=== PATIENT | male | born 1955 | race Caucasian/White ===

== ENCOUNTER 2019-11-10 02:53 | Emergency (ER) | payer OTHER ==
[~2019-11-10] VITALS: Ht 182.9 cm; Wt 86.2 kg
[2019-11-10 03:27] LABS: BASOPHILS ABSOLUTE AUTO 0.08 K/mm3 (0.00-0.23); BASOPHILS PERCENT AUTO 1 % (0-2); EOSINOPHILS ABSOLUTE AUTO 0.25 K/mm3 (0.00-0.68); EOSINOPHILS PERCENT AUTO 2 % (0-6); Hematocrit 48.6 % (37.0-53.0); Hemoglobin 16.9 g/dL (13.5-17.5); IMMATURE GRAN ABSOLUTE AUTO 0.04 K/mm3 (0.00-0.10); IMMATURE GRAN PERCENT AUTO 0 % (0-1); LYMPHOCYTES ABSOLUTE AUTO 2.36 K/mm3 (0.84-5.20); LYMPHOCYTES PERCENT AUTO 22 % (21-46); MONOCYTES ABSOLUTE AUTO 1.15 K/mm3 (0.16-1.47); MONOCYTES PERCENT AUTO 11 % (4-13); Mean Corpuscular HGB 29.8 pg (26.0-34.0); Mean Corpuscular HGB Conc 34.8 g/dL (31.5-36.5); Mean Corpuscular Volume 86 fL (80-100); Mean Platelet Volume 9.9 fL (9.1-12.4); NEUTROPHILS ABSOLUTE AUTO 6.72 K/mm3 (1.96-9.15); NEUTROPHILS PERCENT AUTO 63 % (41-73); Platelet Count 306 K/mm3 (150-400); RDW Coefficient Variation 12.2 % (11.7-14.2); RDW Standard Deviation 38.3 fL (35.1-46.3); Red Blood Cell Count 5.68 M/mm3 (4.30-5.90)
[2019-11-10 03:44] LABS: Alanine Aminotransfer (ALT/SGP 23 U/L (12-78); Albumin, Blood 3.8 g/dL (3.4-5.0); Albumin/Globulin Ratio 0.9 (0.8-1.8); Alk Phos 101 U/L (50-136); Anion Gap 8 mmol/L (6-16); Aspartate Aminotrans (AST/SGOT 18 U/L (12-37); Bilirubin, Total 1.1 mg/dL (0.1-1.0); Blood Urea Nitrogen 22 mg/dL (8-24); Bun/Creatinine Ratio 20.8 (12.0-20.0); CO2, Blood 25 mmol/L (21-32); Chloride, Blood 105 mmol/L (98-108); Creatinine, Blood 1.06 mg/dL (0.60-1.20); Globulin, Blood 4.1 g/dL (2.2-4.0); Glomerular Filtration Rate >60 (60-); Glucose, Blood 95 mg/dL (70-99); Potassium, Blood 3.8 mmol/L (3.5-5.5); Sodium, Blood 138 mmol/L (136-145); Total Protein, Blood 7.9 g/dL (6.4-8.2)
== END 2019-11-10 05:01 | disposition home or self-care (01) ==
LOC: ER 02:53
PROVIDERS: Emergency Medicine
DX: K40.90 Unilateral inguinal hernia, without obstruction or gangrene, not specified as recurrent (principal); K29.70 Gastritis, unspecified, without bleeding; F17.200 Nicotine dependence, unspecified, uncomplicated
CPT/HCPCS: 36415; 74177; 80053; 85025; 99284-25; Q9967

== ENCOUNTER 2020-06-19 13:19 | Emergency (ER) | payer OTHER ==
[~2020-06-19] VITALS: Ht 182.9 cm; Wt 81.7 kg
[~2020-06-19 13:19] MED LIST: ACET325 PO; Amlodipine Bes2.5 MG PO; BISA10S PR; LACT10SY PO; METO25ER PO; SENNA-PLUS TAB1 EACH PO; XARELTO20 MG PO
[2020-06-19] MEDS ORDERED: ZOLOFT25 MG PO (13:43)
[2020-06-19] MEDS ORDERED: XARELTO20 M1 PO (13:44)
[2020-06-19] MEDS ORDERED: QUET25 PO (15:44)
== END 2020-06-19 17:20 | disposition home or self-care (01) ==
LOC: ER 13:19
DX: F03.91 Unspecified dementia, unspecified severity, with behavioral disturbance (principal); R45.1 Restlessness and agitation; Z79.01 Long term (current) use of anticoagulants; Z79.899 Other long term (current) drug therapy; Z86.73 Personal history of transient ischemic attack (TIA), and cerebral infarction without residual deficits
CPT/HCPCS: 99284

== ENCOUNTER 2020-06-19 18:10 | Emergency (ER) | payer OTHER ==
[~2020-06-19] VITALS: Ht 182.9 cm; Wt 86.2 kg
[~2020-06-19 18:10] MED LIST changes: +QUET25 PO; +XARELTO20 M1 PO; +ZOLOFT25 MG PO
== END 2020-06-19 22:00 | disposition home or self-care (01) ==
LOC: ER 18:10
DX: F03.90 Unspecified dementia, unspecified severity, without behavioral disturbance, psychotic disturbance, mood disturbance, and anxiety (principal); Z79.899 Other long term (current) drug therapy; Z79.01 Long term (current) use of anticoagulants; Z86.73 Personal history of transient ischemic attack (TIA), and cerebral infarction without residual deficits
CPT/HCPCS: 99284

== ENCOUNTER 2020-06-26 13:10 | Observation (INO) | payer OTHER, MEDICARE ==
[~2020-06-26] VITALS: Ht 177.8 cm; Wt 84.8 kg
[2020-06-26] MEDS ORDERED: SENNA LAXATIVE8.6 MG PO (16:52)
[2020-06-26] MEDS ORDERED: ZOLOFT25 MG PO (16:53)
[2020-06-26] MEDS ORDERED: SEROQUEL25 MG PO (16:54)
[2020-06-26] MEDS ORDERED: XARELTO20 MG PO (16:54)
[2020-06-26] MEDS ORDERED: DIVA250EC PO (16:55)
[2020-06-26] MEDS ORDERED: LORA.5 PO (16:56)
[2020-06-26 18:04] LABS: BASOPHILS ABSOLUTE AUTO 0.07 K/mm3 (0.00-0.23); BASOPHILS PERCENT AUTO 1 % (0-2); EOSINOPHILS ABSOLUTE AUTO 0.56 K/mm3 (0.00-0.68); EOSINOPHILS PERCENT AUTO 8 % (0-6); Hemoglobin 12.7 g/dL (13.5-17.5); IMMATURE GRAN ABSOLUTE AUTO 0.01 K/mm3 (0.00-0.10); IMMATURE GRAN PERCENT AUTO 0 % (0-1); LYMPHOCYTES ABSOLUTE AUTO 2.59 K/mm3 (0.84-5.20); LYMPHOCYTES PERCENT AUTO 38 % (21-46); MONOCYTES ABSOLUTE AUTO 0.61 K/mm3 (0.16-1.47); MONOCYTES PERCENT AUTO 9 % (4-13); Mean Corpuscular HGB 29.5 pg (26.0-34.0); Mean Corpuscular HGB Conc 32.6 g/dL (31.5-36.5); Mean Corpuscular Volume 91 fL (80-100); Mean Platelet Volume 10.3 fL (9.1-12.4); NEUTROPHILS ABSOLUTE AUTO 2.99 K/mm3 (1.96-9.15); NEUTROPHILS PERCENT AUTO 44 % (41-73); Platelet Count 255 K/mm3 (150-400); RDW Coefficient Variation 12.7 % (11.7-14.2); RDW Standard Deviation 42.5 fL (35.1-46.3); White Blood Cell Count 6.83 K/mm3 (4.00-11.30)
[2020-06-26 18:38] LABS: Acetaminophen, Random <2.0 ug/mL (10.0-30.0); Alanine Aminotransfer (ALT/SGP 36 U/L (12-78); Albumin/Globulin Ratio 0.9 (0.8-1.8); Alk Phos 84 U/L (50-136); Anion Gap 8 mmol/L (6-16); Aspartate Aminotrans (AST/SGOT 16 U/L (12-37); Bilirubin, Total 0.3 mg/dL (0.1-1.0); Blood Urea Nitrogen 26 mg/dL (8-24); Bun/Creatinine Ratio 27.1 (12.0-20.0); CO2, Blood 26 mmol/L (21-32); Calcium, Blood 8.6 mg/dL (8.5-10.1); Chloride, Blood 114 mmol/L (98-108); Creatinine, Blood 0.96 mg/dL (0.60-1.20); Ethanol (Alcohol), Blood, Med <3 mg/dL; Globulin, Blood 3.3 g/dL (2.2-4.0); Glomerular Filtration Rate >60 (60-); Glucose, Blood 97 mg/dL (70-99); Salicylate <1.7 mg/dL (2.8-20.0); Sodium, Blood 148 mmol/L (136-145); Total Protein, Blood 6.3 g/dL (6.4-8.2)
[2020-06-26] MEDS ORDERED: SEROQUEL50 MG PO (19:22)
[2020-06-26 21:09] LABS: Source, Urine Voided
[2020-06-26 21:11] LABS: Bilirubin, Urine Neg (Neg); Blood, Urine Neg (Neg); Glucose Qualitative, Urine Neg (Neg); Ketones, Urine 1+ (Neg); Leukocyte Esterase, Urine Neg (Neg); Nitrite, Urine Neg (Neg); Protein, Urine Neg (Neg); Specific Gravity, Urine 1.015 (1.003-1.022); Urobilinogen, Urine NORM (Normal); pH, Urine 6.5 (5.0-8.0)
[2020-06-26 21:12] LABS: Appearance, Urine Clear (Clear); Color, Urine Yellow (P-Yellow)
[2020-06-26 21:23] LABS: U Amphetamine Screen Not Detected; U Barbituate Screen Not Detected; U Benzodiazapine Screen DETECTED; U Buprenorphine Screen Not Detected; U Cannabinoids Screen Not Detected; U Cocaine Screen Not Detected; U Methadone Screen Not Detected; U Methamphetamine Screen Not Detected; U Opiates Screen Not Detected; U Oxycodone Screen Not Detected; U Phencyclidine Screen Not Detected; U Propoxyphene Screen Not Detected
--- NOTE | 2020-06-27 03:01 | NUR ---
Patient arrived on floor very somnolent and oriented to self only. Very cooperative with brief change. (patient was incontinent of stool and urine) Skin is intact with exception of small triangular red radu in right groin fold. Barrier cream applied. Very difficult admission as patient was an extremely poor historian. MAR from [facility] used as reference for completing Med list. It appears that the scheduled doses of seroquel were recently increased at [facility] to 50mg AM and 50mg PM.
[2020-06-27 06:09] LABS: BASOPHILS ABSOLUTE AUTO 0.08 K/mm3 (0.00-0.23); BASOPHILS PERCENT AUTO 1 % (0-2); EOSINOPHILS ABSOLUTE AUTO 0.57 K/mm3 (0.00-0.68); EOSINOPHILS PERCENT AUTO 8 % (0-6); Hematocrit 38.3 % (37.0-53.0); Hemoglobin 12.9 g/dL (13.5-17.5); IMMATURE GRAN ABSOLUTE AUTO 0.02 K/mm3 (0.00-0.10); IMMATURE GRAN PERCENT AUTO 0 % (0-1); LYMPHOCYTES ABSOLUTE AUTO 2.61 K/mm3 (0.84-5.20); LYMPHOCYTES PERCENT AUTO 37 % (21-46); MONOCYTES ABSOLUTE AUTO 0.66 K/mm3 (0.16-1.47); MONOCYTES PERCENT AUTO 9 % (4-13); Mean Corpuscular HGB 29.9 pg (26.0-34.0); Mean Corpuscular HGB Conc 33.7 g/dL (31.5-36.5); Mean Corpuscular Volume 89 fL (80-100); Mean Platelet Volume 10.6 fL (9.1-12.4); NEUTROPHILS ABSOLUTE AUTO 3.22 K/mm3 (1.96-9.15); NEUTROPHILS PERCENT AUTO 45 % (41-73); Platelet Count 228 K/mm3 (150-400); RDW Coefficient Variation 12.5 % (11.7-14.2); RDW Standard Deviation 41.1 fL (35.1-46.3); Red Blood Cell Count 4.32 M/mm3 (4.30-5.90); White Blood Cell Count 7.16 K/mm3 (4.00-11.30)
[2020-06-27 06:23] LABS: Alanine Aminotransfer (ALT/SGP 32 U/L (12-78); Albumin/Globulin Ratio 0.9 (0.8-1.8); Alk Phos 82 U/L (50-136); Anion Gap 5 mmol/L (6-16); Aspartate Aminotrans (AST/SGOT 12 U/L (12-37); Bilirubin, Total 0.3 mg/dL (0.1-1.0); Blood Urea Nitrogen 22 mg/dL (8-24); Bun/Creatinine Ratio 25.6 (12.0-20.0); CO2, Blood 27 mmol/L (21-32); Calcium, Blood 8.4 mg/dL (8.5-10.1); Chloride, Blood 112 mmol/L (98-108); Creatinine, Blood 0.86 mg/dL (0.60-1.20); Globulin, Blood 3.4 g/dL (2.2-4.0); Glomerular Filtration Rate >60 (60-); Glucose, Blood 80 mg/dL (70-99); Potassium, Blood 3.6 mmol/L (3.5-5.5); Sodium, Blood 144 mmol/L (136-145); Total Protein, Blood 6.4 g/dL (6.4-8.2)
--- NOTE | 2020-06-27 09:13 | NUR ---
Verbally agressive SERVICE ADVISOR attempted to get vitals this morning and patient was verbally agressive towards SERVICE ADVISOR. Patient was yelling out "Fucken shit!" and was disturbing was disruptive to staff/patients. Patient is moved to room 350 for closer observation. Report handed to Sudha Jones RN.
--- NOTE | 2020-06-27 18:27 | NUR ---
SHIFT SUMMARY PT IS AO TO SELF. PT PLEASANT AND COOPERATIVE, BUT SLEEPY THIS SHIFT. PT PULLED IV OUT AND ORDER PLACED FOR NO IV ACCESS NEEDED PER PHYSICIAN. ENCOURAGED FLUIDS AND PT DID WELL WITH ORAL INTAKE UPON CUEING. PT DENIES PAIN, N/V, SOB. PT IS A 2 PERSON MAX ASSIST WITH TRANSFERS. PT HAS A SOCIAL SERVICE CONSULT FOR DC PLACEMENT SINCE [facility]FR[facility]O WILL NOT BE TAKING PT BACK DUE TO BEHAVIOR. PT BLADDER SCANNED THIS AGUEDA PER ORDERS. PT IS IN BED, LOW POSITION, CALL LIGHT IN REACH.
--- NOTE | 2020-06-28 04:05 | NUR ---
SHIFT SUMMARY: BP ELEVATED AT START OF SHIFT, WNL THIS AM. PULSE 46-51. DENIES PAIN. A/OX1. MOOD IS LABILE. PT MOSTLY PLEASANT AND COOPERATIVE WHEN APPROACHED SLOWLY AND ACTIONS ARE EXPLAINED TO PT PRIOR TO DOING THEM. PT BECOMES AGITATED AND WILL SWEAR AT STAFF AND MOTION THAT HE IS GOING TO HIT THEM- WITHOUT FOLLOWING THROUGH- WHENEVER HE DOES NOT WANT TO DO AN ACTIVITY SUCH ATTENDS AND BED CHANGE AFTER EPISODE OF INCONTINENCE. BLADDER SCANNED PER ORDERS, 240CC. PO FLUIDS ENCOURAGED, PT ONLY ACCEPTED A COUPLE SMALL SIPS WITH MEDS. MINIMAL MOVEMENT OF L ARM OBSERVED, CONSISTENT W/PT BASELINE S/P RECENT CVA. SLEEVE SETTER SAFETY STITCH/PUSHE/PULLS EQUAL BILATERALLY HOWEVER. BED LOW, BED ALARM ON, NO ATTEMPTS TO SELF T/F. WILL CONT TO MONITOR.
[2020-06-28 06:21] LABS: Anion Gap 6 mmol/L (6-16); Blood Urea Nitrogen 19 mg/dL (8-24); Bun/Creatinine Ratio 18.1 (12.0-20.0); CO2, Blood 28 mmol/L (21-32); Calcium, Blood 8.7 mg/dL (8.5-10.1); Chloride, Blood 109 mmol/L (98-108); Creatinine, Blood 1.05 mg/dL (0.60-1.20); Glomerular Filtration Rate >60 (60-); Glucose, Blood 75 mg/dL (70-99); Sodium, Blood 143 mmol/L (136-145)
--- NOTE | 2020-06-28 18:00 | NUR ---
SHIFT SUMMARY PT IS AOX2. PT PLEASANT AND COOPERATIVE THIS SHIFT. PT DENIES PAIN, SOB, N/V. PT ABLE TO AMBULATE TO BATHROOM WITH 2 ASSIST TODAY. PT MORE AWAKE TODAY COMPARED TO YESTERDAY. FINGER FOODS ORDERED FOR TOMORROW DUE TO PT'S PARTIAL BLINDNESS. PT STATES VISION IS BLURRY AND HE CAN SEE SHAPES. PT AWAITING FOOD AND BEVERAGE MANAGER REFERRAL FOR PLACEMENT. PT IS IN BED, CALL LIGHT IN REACH, BED IN LOW POSITION.
--- NOTE | 2020-06-29 05:27 | NUR ---
SHIFT SUMMARY: AAOX1. FEW SHORT EPISODES OF AGITATION W/ SWEARING, ESPECIALLY SURROUNDING ATTENDS CHANGES AND BED CHANGES. SEVERAL ATTEMPTS TO SELF T/F. REDIRECTS MORE QUICKLY TONIGHT. MOSTLY PLEASANT AND COOPERATIVE. DENIES PAIN. NO ACUTE CONCERNS AT THIS TIME.
[2020-06-29 05:47] LABS: Anion Gap 6 mmol/L (6-16); Blood Urea Nitrogen 25 mg/dL (8-24); Bun/Creatinine Ratio 26.5 (12.0-20.0); CO2, Blood 27 mmol/L (21-32); Calcium, Blood 8.8 mg/dL (8.5-10.1); Chloride, Blood 109 mmol/L (98-108); Creatinine, Blood 0.94 mg/dL (0.60-1.20); Glomerular Filtration Rate >60 (60-); Glucose, Blood 86 mg/dL (70-99); Potassium, Blood 3.7 mmol/L (3.5-5.5); Sodium, Blood 142 mmol/L (136-145)
--- NOTE | 2020-06-29 14:51 | NUR ---
AGITATION PT WOKE FROM [place] AND IS VERY AGITATED WITH VISUAL AND AUDITORY HALLUCINATIONS. PT ATTEMPTING TO "FIGHT" A PERSON HE SEES IN THE CORNER. MEDICATED WITH 12.5MG PO SEROQUEL PER EMAR. ASSISTED BACK TO BED, WILL MONITOR
--- NOTE | 2020-06-29 16:00 | NUR ---
PT SLEEPING DEEPLY AT THIS TIME, WILL CONTINUE TO MONITOR
--- NOTE | 2020-06-29 18:20 | NUR ---
PT RESTING/SLEEPING AFTER EPISODE OF AGITATION AND HALLUCINATIONS AND RECEIVING 12.5MG PO SEROQUEL. HE DID WAKE AND TAKE HIS 1800 DOSE OF XARALTO. WILL CONTINUE TO MONITOR AND REPORT TO ONCOMING RN
--- NOTE | 2020-06-30 04:02 | NUR ---
SHIFT SUMMARY ALERT, ABLE TO MAKE NEEDS KNOWN. COOPERATIVE WITH CARE; NO EPISODES OF AGITATION THIS SHIFT. NO C/O PAIN/DISCOMFORT. BP ELEVATED AT BEGINNING OF SHIFT; RE-ASSESSED DOWN WNL. APPEARED TO REST MUCH OF SHIFT. VSS/AFEBRILE. NO ACUTE CHANGES NOTED. BED IN LOWEST POSITION; ALARM ON. CALL LIGHT AND BELONGINGS WITHIN REACH. WCTM. REPORT TO ONCOMING RN.
--- NOTE | 2020-06-30 18:14 | NUR ---
NO ACUTE CHANGES NOTED THIS SHIFT, WILL CONTINUE TO MONITOR AND REPORT TO ONCOMING RN
--- NOTE | 2020-06-30 19:15 | NUR ---
ASSUMED CARE RECEIVED REPORT FROM ANDRES JARA. ASSUMED CARE OF PT. RESTING COMFORTABLY AT THIS TIME, NO S/S ACUTE DISTRESS NOTED, RESPS EVEN AND UNLABORED. DENIES NEEDS AT THIS TIME. CALL LIGHT, POSSESSIONS IN REACH, WILL CONTINUE TO MONITOR.
--- NOTE | 2020-07-01 04:30 | NUR ---
SHIFT SUMMARY PT HAS HAD NO ACUTE CHANGES IN CONDITION T/O NIGHT. WAS MONITORED EVERY 1-2 HOURS WITH NEEDS MET. VSS, REVIEWED. ATTEMPTED TO EXIT BED MULTIPLE TIMES T/O NIGHT, RE-DIRECTABLE, AGGRESSIVE TOWARDS STAFF AT TIMES, AND RESISTANT TO CARES. ASLEEP AT THIS TIME. DENIES NEEDS. RESPS EVEN AND UNLABORED. CALL LIGHT, POSSESSIONS IN REACH, BED IN LOW POSITION WITH ALARMS ON, WCTM, REPORT OFF TO ONCOMING RN.
--- NOTE | 2020-07-01 18:18 | NUR ---
SHIFT SUMMARY RAQUEL DENIED PAIN THIS SHIFT. PLEASANT FOR THE MOST PART, NO VIOLENCE. INCONTINENT URINE, MEDS WITH APPLESAUCE. CONFUSED. AO1 TO CHAIR, BED BATH DONE. CALL LIGHT IN REACH, [facility]
--- NOTE | 2020-07-02 04:53 | NUR ---
SHIFT SUMMARY NO ACUTE CHANGES THIS SHIFT. PT SLEPT WELL T/O NIGHT. NO COMPLAINTS OF ANY KIND. PT IS LAYING IN BED WITH EYES CLOSED, EVEN AND UNLABORED RESPIRATIONS. BED IN LOWERED POSITION WITH BED ALARM ON. CALL LIGHT AND PERSONAL ITEMS WITHIN REACH. NO APPARENT NEEDS OR DISTRESS AT THIS TIME, WILL CONTINUE TO MONITOR UNTIL REPORT GIVEN TO DAY RN.
--- NOTE | 2020-07-02 19:24 | NUR ---
SHIFT SUMMARY RAQUEL WAS PLEASANT AND COOPERATIVE IN THE MORNING. UP TO CHAIR FOR MEALS. SET OFF CHAIR ALARM SEVERAL TIMES. GOT AGITATED AND UPSET WITH BED ALARM AND REDIRECTION, CLENCHED FIST WITH THREATS, BUT NO SWINGS. GAVE PRN SEROQUEL. GOT NICOTINE PATCH ORDERED, HE WAS ALSO VERY AGITATED AND WANTED TO GO SMOKE. HAD A COUPLE INCONTINENT BMS AND WAS INCONTINENT URINE. REPORT GIVEN TO NIGHT NURSE
--- NOTE | 2020-07-03 05:01 | NUR ---
SHIFT SUMMARY NO ACUTE CHANGES THIS SHIFT. PT SLEPT WELL T/O NIGHT WITH NO COMPLAINTS OF ANY KIND. ATTEMPTED TO GET OUT OF BED X1, WAS ABLE TO REDIRECT AND PT LAID BACK DOWN TO TRY TO GET MORE SLEEP. PT IS LAYING IN BED, EVEN AND UNLABORED RESPIRATIONS. BED IN LOWERED POSITION WITH BED ALARM IN PLACE. CALL LIGHT AND PERSONAL ITEMS WITHIN REACH. NO APPARENT NEEDS OR DISTRESS AT THIS TIME, WILL CONTINUE TO MONITOR UNTIL REPORT GIVEN TO DAY RN.
--- NOTE | 2020-07-03 18:01 | NUR ---
SHIFT SUMMARY PATIENT HAS BEEN VERY ORNERY TODAY. HE STATED THIS MORNING WHEN I CAME ONTO SHIFT HE WAS JUST GOING TO "SIT AROUND AND BE A SHIT". I WAS ABLE TO KEEP HIM REDIRECTED TODAY HE WANTED TO GO OUTSIDE AND HAVE A CIGARETTE. HE ALSO STATES THAT ITS TIME FOR HIM TO GO HOME AND HE NEEDS HIS WHEELCHAIR. PATIENT DENIES ANY CONCERNS AT THIS TIME. HE JUST WANTS TO GET BACK HOME AT THIS TIME.
--- NOTE | 2020-07-03 18:50 | NUR ---
VERIFIED VIDEO MONITORING CALLED SCU MONITOR TO VERIFY VIDEO MONITORING
--- NOTE | 2020-07-04 04:30 | NUR ---
SHIFT SUMMARY ADMITTED FOR AGITATION/DEMENTIA. DNR CODE. PLAN IS FOR PLACEMENT IN A [facility] F[facility]ILITY. CARE MANAGEMENT IS WORKING ON PLACEMENT. HE WAS PREVIOUSLY FROM [facility]. PT RUNS HYPERTENSIVE. HOME MEDICATION XARELTO IS SCHEDULED. IT WAS REPORTED TO ME THAT PT REFUSES MEDS AT TIMES. FOR THIS SHIFT HE ACCEPTED ALL MEDICATIONS OFFERED. HE RESTED COMFORTABLY THROUGHOUT SHIFT. NO NEW CONCERNS.
--- NOTE | 2020-07-04 15:47 | NUR ---
1510- PATIENT STARTED TO GET UP OUT OF HIS CHAIR AND HIS ALARM WAS GOING OFF. PATIENT WAS ALREADY UPSET AND STATED HE WANTED TO GO OUTSIDE AND HAVE A CIGARETTE. HE IS UNHAPPY ABOUT NOT BEING ABLE TO GO OUTSIDE. HE MANAGED TO WALK BEHIND THE CHAIR AND SWUNG AT THE AID THAT WAS TRYING TO HELP HIM ([facility]). SHE CALLED FOR HELP AND THE OTHER AID CALLED SECURITY FOR STANDBY/CODE TATUM. PATIENT WAS ALMOST FALLING. NURSE MADE IT INTO THE ROOM AND THE PATIENT WAS TRYING TO WALK OVER CORDS. ALL CORDS WERE UNPLUGGED AND PATIENT BEGAN TO WALK INTO THE HALLWAY. THE PATIENT AT THIS TIME HAD TRIED TO SWING HIS FISTS BEHIND HIM. HE MANAGED TO WALK INTO THE HALLWAY, ONE AID BEHIND HIM WITH A CHAIR IN CASE HE FELL, NURSE ON THE SIDE WHILE WAITING FOR SECURITY. PATIENT TURNED AND ALMOST FELL, SECURITY WAS ABLE TO HELP AVOID A FALL AND GET THE PATIENT BACK TO HIS ROOM AND INTO THE BED. PATIENT WAS PLACED IN A MELYSSA VEST AND WRIST RESTRAINTS HE WAS SWINGING AT STAFF AND KICKING HIS LEGS. WE ASSESS THE PATIENT AT THE TIME WITH MELYSSA AND WRISTS, PATIENT WAS USING HIS LEGS TO TAKE THE WRIST RESTRAINTS OFF AND STILL TRYING TO KICK STAFF. PATIENT WAS THEN PLACED IN WRIST AND ANKLE RESTRAINTS AT 1520. PATIENT CIRCULATION WAS CHECKED, AND DOCTOR PEARL WAS CALLED AT 1543. AWAITING A CALL BACK FROM DR. PEARL FOR RESTRAINTS ORDER. PATIENT IS CURRENTLY MUMBLING TO HIMSELF AFTER INSULTING STAFF AND STATING THAT EVERYONE IN THE ROOM WAS NEXT ON HIS LIST, HE WAS GOING TO KICK EVERYONES [BUTT] AND USING PROFANITIES ABOUT HOW HE WOULD FIND STAFF AT THEIR HOUSE AND TAKE THEM OUT. PATIENT IS IN FOUR POINTS AND MELYSSA FOR HIS OWN SAFETY AND SAFETY OF STAFF HE IS CURRENTLY TRYING TO CLIMB OUT OF BED, EVEN WITH RESTRAINTS IN PLACE. PATIENT WILL CONTINUE TO BE MONITORED CLOSELY. WILL CALL DR. PEARL AGAIN IN A FEW MINUTES.
--- NOTE | 2020-07-04 16:10 | NUR ---
ATTEMPTED TO CALL DR. PEARL AGAIN FOR THE RESTRAINTS ORDER. WILL CALL AGAIN IN 5 MINUTES.
--- NOTE | 2020-07-04 17:49 | NUR ---
PATIENT STILL NOT EATING. HE STATES THAT HE WILL EAT WHEN THE PERSON IN HIS ROOM WAKES UP. HE IS CURRENTLY STILL IN THE RESTRAINTS AND HAS HELP FOR
--- NOTE | 2020-07-04 18:33 | NUR ---
SHIFT SUMMARY PATIENT IS CURRENTLY IN A MELYSSA VEST. HE HAS BEEN AGITATED AND AGGRESSIVE TODAY. HE WAS FIXATED ON GOING OUTSIDE AND HE SWUNG AT STAFF. SEE PREVIOUS NOTE FOR FULL DETAILS. HE HAS DONE WELL IN THE MELYSSA VEST, BUT DID NOT REQUIRE THE ANKLES AT THIS TIME. ASSESSING THE PATIENT HAS BEEN DONE. HE IS STILL RELAXING IN THE BED AT THIS TIME. SPOKE WITH DR. PEARL AND HE GOT A PRN DOSE OF SEROQUEL. HE IS REFUSING HIS PILLS TODAY. HE STATES THAT HE DOESNT NEED THEM ANYMORE. TRIED TO GIVE HIM ONE OF HIS MORNING MEDS AND HE IS NOT EVEN WILLING. HE WILL KEEP HIS MOUTH CLOSED OR TRY TO SPIT. HE DID TAKE A PRN DOSE OF SEROQUEL AT 1600. HE HAS DONE WELL SINCE THEN. HE IS HAVING A LOT OF HALLUCINATIONS TONIGHT AND UNSURE WHY.
--- NOTE | 2020-07-04 19:15 | NUR ---
VERIFIED VIDEO MONITORING CALLED SCU MONITOR TO VERIFY CAMERAS ARE IN PLACE AND MONITORING
--- NOTE | 2020-07-05 04:09 | NUR ---
SHIFT SUMMARY ADMITTED FOR AGITATION/DEMENTIA. DNR CODE. PLAN IS FOR PLACEMENT IN [facility]. PT HAS A HX OF GETTING AGITATED/COMBATIVE. HE IS CONFUSED, HE DOES HALLUCINATE. HE DID SLEEP SOUNDLY THROUGHOUT SHIFT - FOLLOWING MED PASS. NO NEW CONCERNS THIS SHIFT
--- NOTE | 2020-07-06 01:52 | NUR ---
65 year old MAle with vascular dementia with behavioral disturbances taken out of bam vest on day shift & we continue with high fall risk precautions as well as approach with caution due to hx of agression. PT was not agressive but he was verbally abusive when staff interveaned to answer bed alarm. He was incontinent of bowel & bladder but also amb to bathroom with staff. PT saying he is sorry for recent stupid acitivy. Cooperative with meds. Declined alcohol at HS. Needs safe placement , dc planning working with PT.
--- NOTE | 2020-07-06 15:47 | NUR ---
PATIENT HAS BEEN ACTUALLY PLEASANT TOWARDS STAFF THIS SHIFT. TIRED AND SLEEPING MOST OF THE SHIFT BUT AWAKENS LONG ENOUGH TO TAKE HIS MEDICATION. HE TAKES HIS MEDS WHOLE IN APPLESAUCE WITHOUT COMPLICATION. VITALS ARE STABLE AND WNL. PATIENT CONTINUES TO SLEEP IN BED AT THIS TIME. WILL CONTINUE TO MONITOR AND PROVIDE CARE NEEEDED.
--- NOTE | 2020-07-07 06:11 | NUR ---
65 year old Male with hx of dementia, blindness, CVA continues on remote camera monitoring due to high fall risk. No calls from compliance monitor on high risk activity. Pt had declined dinner tray & he did eat 50% of dinner with me feeding him. No attempts to feed self or take fluids. Incontinent of bowel & bladder, placed urinal & PT did not void. PT not agressive cooperative with lashanda greco in [facility]. Says he is sorry for any problems he caused. fall precautions continue.
--- NOTE | 2020-07-07 17:12 | NUR ---
PATIENT HAS BEEN LETHARGIC ALL DAY AND SLEEPING. HE WILL AWAKEN TO VERBAL COMMAND BY STAFF. HE ALLOWS FOR ADL's AND PERSONAL CARE TO BE COMPLETED AND HAS TAKEN ALL HIS MEDICATION WITHOUT COMPLICATION. PATIENT CONTINUES TO RECIEVE A BEER WITH MEALS BUT DRINKS MINIMALLY OF IT. VITALS HAVE BEEN STABLE AND WITHIN NORMAL LIMITS. WILL CONTINUE TO MONITOR AND PROVIDE CARE NEEDED.
--- NOTE | 2020-07-08 07:03 | NUR ---
pt INCONTIENT OF BOWEL & BLADDER, DOES NOT COMMUNICATE THAT HE NEEDS TO URINATE OR DEFICATE. NO AGRESSION OR RESISTANCE. hE NEEDS SET UP CUES & SOME ASSIST TO EAT. ABLE TO USE STRAW. EDENTULOUS CHEWS FOOD THOUROUGHLY. NOT OUT OF BED , NEEDS ASSIST FOR BED MOBILITY. CAME FROM snf NEEDS dc PLANNING DUE TO RECENT AGRESSIVE BEHAVIORS THAT ARE NOT EVIDENT NOW
--- NOTE | 2020-07-08 16:55 | NUR ---
Patient has been more awake today than the past two days. after eating lunch the patient did become verbally agressive towards the staff including the use of foul language; patient was given PRN medication to assist with the behaviors per emar, med was effective. Patient denies pain and discomfort. Continues to recieve a beer with each meal; typically does not drink much of it however did finish the entire can with his lunch. Patient continues to rest in bed at this time. will continue to monitor and provide care as needed.
--- NOTE | 2020-07-09 06:20 | NUR ---
HUMAN RESOURCES DIRECTOR SUMMARY PT HAS TRIED TO GET OUT OF BED 2-3 TIMES TONIGHT AFTER SCHEDULED SEROQUEL GIVEN. THIS MORNING AT 0600 PT WAS DIFFICULT TO WAKE UP. PT WOKE UP TO STERNAL RUB AND COOL WASH CLOTH. AFTER THIS WAS DONE PT TRIED TO SWAT STAFF'S HANDS AWAY ACTIVELY. PT OPENED EYES A BRIEF SECOND AND CLOSED THEM AGAIN AND STILL ACVTIVELY PUSHING STAFF'S HANDS AWAY AND MOVING HIS HEAD. PT IS NORMALLY BRADYCARDIC. CAMERA MONITOR ON, CALL LIGHT WITHIN REACH, WILL CONTINUE TO MONITOR AND GIVE REPORT TO ONCOMING RN.
--- NOTE | 2020-07-09 18:35 | NUR ---
SHIFT SUMMARY PT AxOx2 TO SELF AND PLACE. PLEASANT AND COOPERATIVE WITH CARE. NO AGITATION NOTED. 2 PERSON ASSIST WITH FWW TO RECLINER. VITALS SHOWED BRADYCARDIA AND HTN. THIS IS CONSISTENT WITH PT'S HISTORY. NO IV ACCESS. GOOD APPETITE TODAY. LOW URINE OUTPUT. PLAN FOR PLACEMENT IS PENDING. PT CURRENTING RESTING IN RECLINER WITH CALL LIGHT IN REACH. VITALS REVIEWED. PT DENIES ANY NEEDS AT THIS TIME.
[2020-07-10 05:42] LABS: Albumin, Blood 2.9 g/dL (3.4-5.0); Anion Gap 4 mmol/L (6-16); Blood Urea Nitrogen 19 mg/dL (8-24); Bun/Creatinine Ratio 22.6 (12.0-20.0); CO2, Blood 28 mmol/L (21-32); Calcium, Blood 8.6 mg/dL (8.5-10.1); Chloride, Blood 110 mmol/L (98-108); Creatinine, Blood 0.84 mg/dL (0.60-1.20); Glomerular Filtration Rate >60 (60-); Glucose, Blood 92 mg/dL (70-99); Phosphorus, Blood 3.4 mg/dL (2.5-4.9); Potassium, Blood 4.3 mmol/L (3.5-5.5); Sodium, Blood 142 mmol/L (136-145)
--- NOTE | 2020-07-10 07:11 | NUR ---
FISH CUTTING MACHINE OPERATOR SUMMARY PT A/O X1. PT HAS TRIED TO GET UP OUT OF BED MULTIPLE TIMES OVERNIGHT. SCHEDULED SEROQUEL AT BEDTIME GIVEN BUT PT WAS STILL TRYING TO GET OUT OF BED, HARD TO RE-DIRECT AND VERBALLY ABUSIVE. PRN SEROQUEL GIVEN AT 0119 WHICH HELPED PT SLEEP. DENIES PAIN. NO SOB. REPORT GIVEN TO ONCOMING RN.
--- NOTE | 2020-07-10 18:37 | NUR ---
SHIFT SUMMARY PT AxOx1-2. VERBAL AGGITATION TOWARDS NURSES AND AIDE THIS AM WHEN HE DID NOT MAKE IT TO THE BATHROOM ON TIME. STAFF ABLE TO REDIRECT AND CALM PATIENT DOWN. HE HAS BEEN COOPERATIVE AND CALM THE REST OF THE SHIFT. PLAN STILL PENDING PLACMENT. GOOD APPETITE. FEEDS SELF WELL WITH FINGER FOODS. UP IN CHAIR FOR MEALS. BEER OFFERED WITH MEALS. TRANSFERS TO CHAIR 2PERSON ASSIST WITH FWW. CURRENTLY EATING DINNER. DENIES PAIN OR ANY NEEDS. VITALS REVIEWED. BP TRENDING HIGH. METOPROLOL WAS DC'D TODAY BEFORE AM MEDS GIVEN. CALL LIGHT IN REACH.
--- NOTE | 2020-07-11 04:42 | NUR ---
SHIFT SUMMARY ASSUMED CARE OF PT AT 1900. PT IS A/OX1. HEART SOUNDS REGULAR, LUNG SOUNDS CLEAR. PT HAS NO NEW COMPLAINTS. PT WAS INCONTINENT T/O THE NIGHT. URINE IS STRONG SMELLING. PT SLEPT T/O THE NIGHT. PT TOOK MEDS WHOLE IN APPLESAUCE. NO ACUTE EVENTS DURING THE NIGHT. PT SLEPT T/O THE NIGHT. CALL LIGHT IN REACH, BED IN LOWEST POSTION, WILL CONTINUE TO MONITOR.
--- NOTE | 2020-07-11 16:27 | NUR ---
HE HAS BEEN IN BED ALL DAY BUT APPEARS VERY COMFORTABLE. HE HELPED FEED HIMSELF. HE IS BLIND AND ORIENTED ONLY TO SELF. HE HAS BEEN PLEASANT. HE HAS SLEPT A LOT THOUGH. NO DISTRESS. WAITING FOR PLACEMENT.
--- NOTE | 2020-07-12 04:30 | NUR ---
SHIFT SUMMARY ASSUMED CARE OF PT AT 1900. PT IS A/OX2. PT DENIES ANY NEW COMPLAINTS. PT STATES THAT HE IS VERY TIRED TONIGHT AND WHEN TO BED EARLY. HEART SOUNDS REGULAR, LUNG SOUNDS CLEAR. PT WAS INCONTINENT T/O THE NIGHT. NO ACUTE EVENTS DURING THE NIGHT. PT SLEPT T/O THE NIGHT. CALL LIGHT IN REACH, BED IN LOWEST POSTION, WILL CONTINUE TO MONITOR UNTIL DAYSHIFT NURSE ARRIVES.
--- NOTE | 2020-07-12 15:29 | NUR ---
NO COMPLAINTS TODAY. HE IS STILL SITTING UP IN A CHAIR SINCE LUNCHTIME. HE IS ASLEEP IN THE CHAIR WITH A BLANKET WRAPPED AROUND HIM. HE REMAINS PLEASANTLY CONFUSED.
--- NOTE | 2020-07-12 17:05 | NUR ---
HE HAS BEEN SITTING UP IN THE CHAIR FOR THE PAST FEW HRS. NO COMPLAINTS. NO AGITATION. DENIES ANY PAIN OR SOB. HE NEEDS ASSIST WITH MEALS AND EATS WELL. HE IS INCONTINENT. SKIN INTACT.
--- NOTE | 2020-07-13 04:25 | NUR ---
SHIFT SUMMARY: PT IS ALERT AND CONFUSED. PT IS COOPERATIVE YET AGITATED AT TIMES. PT DOES NOT USE HIS CALL LIGHT. PT SET HIS CHAIR ALARM OFF SEVERAL TIMES NEAR THE BEGINNING OF THE NIGHT. PT DENIES PAIN, NAUSEA, VOMITING, AND SOB. PT SLEPT MUCH OF THE NIGHT WHEN NOT DISTURBED. PT INCONTINENT ON SEVERAL OCCASIONS, CHANGED AND CLEANED NEEDED. NO ACUTE CHANGES OR COMPLICATIONS. WILL REPORT TO DAY NURSE.
--- NOTE | 2020-07-13 18:46 | NUR ---
SHIFT SUMMARY: NO ACUTE CHANGES TO REPORT THIS SHIFT. PT HX VASCULAR DEMENTIA; A&O X2; CALM AND COOPERATIVE WITH CARE. LEGALLY BLIND; FEEDING ASSIST. NO C/O PAIN THIS SHIFT. AWAITING PLACMENT. WCTM.
--- NOTE | 2020-07-14 05:30 | NUR ---
SUMMARY NO ISSUES NOTED THIS SHIFT. PT HAS BEEN COOPERATIVE AND QUIET T/O SHIFT. PT CURRENTLY SLEEPING IN NO DISTRESS. CALL LIGHT IN REACH.
--- NOTE | 2020-07-14 19:10 | NUR ---
SHIFT SUMMARY: NO ACUTE CHANGES TO REPORT THIS SHIFT. PT HX VASCULAR DEMENTIA; A&O X2; CALM AND COOPERATIVE WITH CARE. NO C/O PAIN THIS SHIFT. PT MEDICALLY STABLE; AWAITING PLACMENT. REPORT GIVEN TO ONCOMING RN.
--- NOTE | 2020-07-15 04:21 | NUR ---
SUMMARY NO NEW ISSUES NOTED. PT HAS SLEPT T/O SHIFT. PT HAS BEEN CHANGED NEEDED. PT CURRENTLY SLEEPING AND IN NO DISTRESS. CALL LIGHT IN REACH AND BED ALARM ON.
--- NOTE | 2020-07-15 15:23 | NUR ---
SUMMARY PT IS A/O X1-2, HE IS LEGALLY BLIND HOWEVER HE IS ABLE TO SEE SHAPES. PLEASANT, CALM, COOPERATIVE AFFECT. HE REQUIRES SOME ASSIST TO EAT, MOSTLY SUPERVISION/SET-UP. 2 ASSIST OOB. HE HAS STATED COMFORT TODAY, "I FEEL GOOD", DR MEDINA IN TO SEE HIM THIS AM, NOO NEW ORDERS. SOCCER COACH PROVIDE BEDBATH TODAY. VSS.
--- NOTE | 2020-07-15 19:49 | NUR ---
AWAKENED FOR REPORT FROM PREVIOUS NURSE. HOB ELEVATED. PT QUIETT UNLESS SPOKEN TO. CALL LIGHT IN REACH. NO NOTE S/S ACUTE PHYSICAL DISTRESS.
--- NOTE | 2020-07-16 04:46 | NUR ---
SHIFT SUMMARY HAS BEEN RESTING QUIETLY WITH OCCASIONAL INTERRUPTIONS OF INCONT OF URINE. LINEN WAS CHANGED AND PT WENT BACK TO SLEEP. NO NOTED S/S ACUTE DISTRESS. CALL LIGHT IN REACH. BED ALARM ON FOR SAFETY.
--- NOTE | 2020-07-16 15:58 | NUR ---
SUMMARY PT IS A/O X1-2, BLIND-ABLE TO SEE SHAPES. HX DEMENTIA, SENT TO HOSP FOR INCREASED AGITATION FROM [facility]. HE HAS BEEN GENERALLY PLEASANT/COOPERATIVE w CARE. THIS AFTERNOON DEMONSTRATED SOME AGITATED BEHAVIOR, CURSING, MILDLY THREATENING SPEECH GAVE PRN SEROQUEL 12.5MG, EFFECTIVE AFFECT RETURN TO PLEASANT/COOPERATIVE. HE HAS BEEN OOB T/O DAY IN CHAIR, LISTENS TO TV. DR MEDINA STATE NO NEW ORDERS, ATTEMPTING TO PROVIDE PT NEW LIVING PLACEMENT. VSS.
--- NOTE | 2020-07-16 16:37 | NUR ---
PT GETTING UP w/o ASSIST, QUALITY CONSULTANT IN TO [facility]PER[facility]ISE, PLACE GAIT BELT. PT REQUEST TO AMBULATE TO "[facility]", HE IS CONFUSED, MILDLY AGITATED w REDIRECT @ X'S CURSING. ALLOWED HIM TO AMBULATE IN [place] w 2 ASSIST, HE EASILY TIRES, ASSISTED BACK TO BED @ THIS TIME. ALARM ON. WILL MX.
--- NOTE | 2020-07-16 22:32 | NUR ---
HAS BEEN RESTLESS AND AGITATED SINCE SHIFT COMMENCE. REDIRECTED AND THEN GETS AGITATED AGAIN AND AGAIN. MEDICATIONS ADMINISTERED. WARM BLANKET APPLIED. CALL LIGHT IN REACH. BED ALARM ON FOR SAFETY.
--- NOTE | 2020-07-17 04:22 | NUR ---
SHIFT SUMMARY AWAKE INTERMITTENTLY THROUGH SHIFT. WHEN AWAKE VOICED HE WSA LOOKING FOR CIGARETTES, THAT HE WANTED TO SMOKE. REDIRECTED - RE HE WAS IN A HOSPITAL AND NO SMOKING WAS ALLOWED. BECAME ANGRY AND AGITATED BUT WAS AGAIN REDIRECTED AND ASSISTED BACK INTO BED. RAILS UP X 3, ENCURAGED TO GET SOME REST. WAR BLANKETS APPLIED, CHANGED WHEN INCONT OF URINE AND FECES. CALL LIGHT IN REACH. CURRENTLY STARING AT THE CEILING WITH TV ON. CAMERA IN USE AND BED ALRAM ON
--- NOTE | 2020-07-17 17:13 | NUR ---
SUMMARY PT RESTING QUIETLY IN BED, HAS BEEN COOPERATIVE FOR MOST OF THE DAY, PT HAS HAD EPISODES OF IRRITABLILITY WHERE HE SWEARS AT STAFF AND STATES HE WANTS TO BE LEFT ALONE, LABILE MOOD, PT IMPULSIVE, DOES NOT USE HIS CALL LIGHT, BED ALARM ON FOR SAFETY, PT DID SET OFF THE BED ALARM TODAY, SAT UP AT THE EDGE OF THE BED FOR A FEW MINUTES, PT ABLE TO TAKE HIS PILLS WHOLE IN APPLESAUCE, NO S/S CHOKING, PT ABLE TO FEED HIMSELF SOME FINGER FOODS PLACED IN HIS HAD, STILL NEEDS TO BE ASSISTED WITH DRINKS, VSS, WILL CONT TO MONITOR
--- NOTE | 2020-07-18 04:28 | NUR ---
SHIFT SUMMARY NO ACUTE CHANGES THIS SHIFT. PT DENIES PAIN OR DISCOMFORT. PT SLEPT WELL T/O NIGHT. PT IS CURRENTLY LAYING IN BED WITH EYES CLOSED, EVEN AND UNLABORED RESPIRATIONS. BED IN LOWERED POSITION WITH ALARM IN PLACE. CALL LIGHT AND PERSONAL ITEMS WITH IN REACH. NO APPARENT NEEDS OR DISTRESS AT THIS TIME, WILL CONTINUE TO MONITOR UNTIL REPORT GIVEN TO DAY RN.
--- NOTE | 2020-07-18 17:15 | NUR ---
SHIFT SUMMARY PT AXO TO SELF AND FOLLOWING DIRECTIONS. PT CALM AND COOPERATIVE WITH CARE. NO ACUTE CHANGES THIS SHIFT. PT SLEEPING MOST OF THE SHIFT TODAY. PT DENIES PAIN, SOB AND N/V. VSS. BED IN LOW POSITION, CALL LIGHT WITHIN REACH.
--- NOTE | 2020-07-19 17:19 | NUR ---
NO ACUTE CHANGES TO PT. HE HAS BEEN COOPERATIVE ALL SHIFT. CALL LIGHT WITHIN REACH.
--- NOTE | 2020-07-20 01:42 | NUR ---
07/20/20 0100 PT'S BED ALARM SOUNDING AND PT WAS STANDING AT SIDE OF BED WHEN RN ARRIVED. STATED HE WANTED TO "GO TO THE BATHROOM TO PEE." PT HAD ALREADY VOIDED IN ATTENDS A LARGE AMOUNT OF YELLOW URINE. HELPED PT TO BSC AND HE DID NOT VOID. VALERIY-CARE GIVEN. ASSISTED BACK TO BED AND HE BECAME ANGRY, CLENCHING HIS FISTS AT STAFF. REORIENTED TO SURROUNDINGS.
--- NOTE | 2020-07-20 02:41 | NUR ---
07/20/20 0235 Pt wanting to sit up in chair. More agitated this shift. BP higher than usual DUE TO AGITATION.
--- NOTE | 2020-07-20 05:23 | NUR ---
07/20/20 0520 PT SLEEPING IN LOUNGE CHAIR. CHAIR ALARM ON. NO DISTRESS NOTED. PT HAS BEEN MORE AGITATED THIS SHIFT FROM PREVIOUS NIGHT. SEE MAR FOR MEDS GIVEN.
--- NOTE | 2020-07-20 16:43 | NUR ---
SHIFT SUMMARY- PT A/O TO SELF ONLY. PT IRRITABLE AT TIMES. PT WITH HALLUCINATIONS AT TIMES THIS SHIFT, TALKING TO SELF AND SEEING THINGS IN HIS ROOM. LS CLEAR, ON RA. PT UP TO CHAIR/ BSC WITH 1-2 ASSIST. PT HAS SLEPT ON AND OFF T/O THE DAY. PT AWAINTING PLACEMENT AT THIS TIME.
--- NOTE | 2020-07-21 07:16 | NUR ---
07/21/20 0600 PT SLEPT WELL LAST NIGHT. DENIED ANY DISCOMFORT OR S/S. SOME HALLUCINATIONS AT BEGINNING OF SHIFT BUT NONE NOTED AFTER PM MEDS GIVEN. VITALS STABLE. BED ALARM ON.
--- NOTE | 2020-07-21 17:19 | NUR ---
SHIFT SUMMARY NO ACUTE CHANGES T/O SHIFT, A&O TO SELF ONLY. PT WAS CALM AND COOPERATIVE c CARE FOR THE MOST PART. WAS SLIGHTLY AGGITATED THIS AM WHEN THE IRONWORKER APPRENTICE WAS OBTAINING MORNING VS. NO COMPLAINTS OF PAIN OR SOB THIS SHIFT. PT UP TO BSC c ASSISTANCE TODAY AND SAT IN CHAIR FOR LUNCH. PT ALSO SLEPT ON & OFF TODAY BUT WAS EASILY ARROUSED. PT IS WAITING FOR PLACEMENT @ THIS TIME. PT IS CURRENTLY SLEEPING, BED IS IN LOWEST POSITION AND CALL LIGHT IS WITHIN REACH.
--- NOTE | 2020-07-22 05:35 | NUR ---
SHIFT SUMMARY NO ACUTE CHANGES TO REPORT THIS SHIFT. PT HAS RESTED MOST OF THE NIGHT. PLESANTLY CONFUSED AND COOPERATIVE WITH CARE. VITALS ARE STABLE. ASSESSMENT UNCHANGED. BED IN LOWEST POSITON CALL LIGHT WITHIN REACH.
--- NOTE | 2020-07-22 17:41 | NUR ---
SHIFT SUMMARY- PT ALERT AND ORIENTED TO SELF. PT HAS HAD INAPPROPRIATE DISPLAYS OFF AN ON T/O THE SHIFT. PT OCCASSIONALLY USES ANGRY LANGUAGE BUT IS REDIRECTABLE. PT ON THE CAMERAS FOR SAFETY AND HAS BEEN IMPULSIVE FREQUENTLY T/O THE DAY. PT HAS HAD NO ACUTE CHANGES T/O THE SHIFT. PT HAS HAD NO C/O PAIN. CURRENTLY UP IN THE CHAIR WITH CALL LIGHT IN REACH.
--- NOTE | 2020-07-23 02:04 | NUR ---
2001 PT RESTING COMFORTABLY IN BED; CHEERFUL; TOOK ALL H.S. MEDS WITHOUT ISSUE.
--- NOTE | 2020-07-23 03:24 | NUR ---
SHIFT SUMMARY: 65 Y/O MALE RESTED COMFORTABLY ALL SHIFT; ALERT AND ORIENTED X 2; DENIES PAIN OR NAUSEA; TOOK ALL H.S. MEDS WITHOUT ISSUE; BED ALARM APPLIED, BED LOW POSITION WITH CALL LIGHT AT SIDE.
--- NOTE | 2020-07-23 19:48 | NUR ---
SHIFT SUMMARY- PT HAS HAD NO ACUTE CHANGE SINCE THE START OF THE SHIFT. PT HAS REMAINED PLEASENTLY CONFUSED AND REDIRECTABLE. RECPORT COMPLETED WITH NIGHT RN NO CHANGE IN PT STATUS AT THIS TIME.
--- NOTE | 2020-07-23 20:13 | NUR ---
2011 65 Y/O MALE SITTING UP CHAIR AFTER TAKING ALL H.S. MEDS; CALM AND COOPERATIVE; DENIES PAIN OR NAUSEA.
--- NOTE | 2020-07-24 03:43 | NUR ---
SHIFT SUMMARY: 65 Y/O MALE RESTED COMFORTABLY ALL SHIFT; DENIES PAIN OR NAUSEA; PT ALERT AND ORIENTED X2, ABLE TO FOLLOW SIMPLE VERBAL COMMANDS; BED ALARM APPLIED FOR SAFETY, BED LOW POSITION WITH CALL LIGHT AT SIDE.
--- NOTE | 2020-07-24 17:39 | NUR ---
PATIENT IS ALERT. PATIENT IS COOPERATIVE WITH CARE. HE HAS BEEN UP IN THE RECLINER FOR MOST OF THE DAY, CHAIR ALARM ON. CAMERA MONITORING ON. PATIENT WILL STAND ON HIS OWN. HE IS EASILY REDIRECTABLE. PATIENT WANTS TO SMOKE. A NICOTINE PATCH IS IN PLACE. HE HAS A GOOD APPETITE. LARGE BM TODAY. WILL CONTINUE TO MONITOR.
--- NOTE | 2020-07-24 22:32 | NUR ---
AGITATION PT BECAME EXTREMELY AGITATED, INSISTING THAT HE WAS GOING "OUT TO THE GARAGE TO SMOKE". ATTEMPTED TO DISTRACT OR REORIENT THE PT FAILED, AND PT CONTINUALLY TRYING TO GET OUT OF BED AND CLIMB OVER BED RAILING. PT STARTED SWINGING AT STAFF AND CUSSING. HOSPITALIST MARIA ELENA TORRES WAS NOTIFIED, AND MELYSSA AND BL WRIST RESTRAINT AND OT IM ZYPREXA ORDERED. ZYPREXA ADMINISTERED IN R THIGH. PT STILL AGITATED, PULLING AT RESTRAINTS. WILL CONTINUE TO MONITOR.
--- NOTE | 2020-07-25 05:11 | NUR ---
SHIFT SUMMARY PT IS A 65 Y/O MALE, ADMITTED FOR AGITATION AND DEMENTIA. HE IS A&O X SELF ONLY, WITH AUDITORY AND VISUAL HALLUCINATIONS, VERY DIFFICULT TO REORIENT. A 2P MAX OUT OF BED. PT WAS VERY AGITATED DURING THE NIGHT, TRYING TO CLIMB OUT OF BED AND NEARLY FALLING MULTIPLE TIMES, AND WAS PLACED IN A MELYSSA AND BUE WRIST RESTRAINTS (SEE PREVIOUS NOTE). WHILE AWAKE, PT TALKS TO "THE PEOPLE IN MY ROOM", OCCASIONALLY CUSSING OR YELLING AND SCREAMING OUT. NO C/O PAIN, NAUSEA OR SOB. VITAL SIGNS STABLE. PT SLEPT FOR A COUPLE OF HOURS DURING THE NIGHT. NO OTHER ACUTE CHANGES IN PT CONDITION NOTED DURING THE NIGHT. WILL CONTINUE TO MONITOR AND TREAT PER EMAR UNTIL HAND OFF TO DAY SHIFT RN.
--- NOTE | 2020-07-25 18:23 | NUR ---
Shift Summary Patient had some agitation noted, remains difficult to redirect but slept intermittently throughout shift. No auditory/visual hallucinations. Vest/Wrist restraints d/c. No acute changes, will continue to monitor.
--- NOTE | 2020-07-26 04:36 | NUR ---
SHIFT SUMMARY PT HAS RESTED OFF AND ON T/O THE NIGHT. CONFUSED WITH NONSENSICAL SPEECH. PT HAS BRIEF PERIODS OF AGITATION WHERE HE WILL WILL RAISE HIS FIST OR YELL OUT. IT HAS BEEN EASY TO CALM PT DOWN AND REDIRECT HIM. PT ATTEMPTS TO GET OOB WITHOUT ASSISTANCE A FEW TIMES THIS SHIFT. BED ALARM IN PLACE FOR SAFETY. NO ACUTE CHANGES OVERNIGHT. BED IN LOWEST POSITION, CALL LIGHT WITHIN REACH.
[2020-07-26 05:36] LABS: BASOPHILS ABSOLUTE AUTO 0.11 K/mm3 (0.00-0.23); BASOPHILS PERCENT AUTO 1 % (0-2); EOSINOPHILS ABSOLUTE AUTO 0.52 K/mm3 (0.00-0.68); EOSINOPHILS PERCENT AUTO 6 % (0-6); Hemoglobin 12.2 g/dL (13.5-17.5); IMMATURE GRAN ABSOLUTE AUTO 0.02 K/mm3 (0.00-0.10); IMMATURE GRAN PERCENT AUTO 0 % (0-1); LYMPHOCYTES ABSOLUTE AUTO 2.47 K/mm3 (0.84-5.20); LYMPHOCYTES PERCENT AUTO 30 % (21-46); MONOCYTES ABSOLUTE AUTO 0.94 K/mm3 (0.16-1.47); MONOCYTES PERCENT AUTO 11 % (4-13); Mean Corpuscular HGB 29.3 pg (26.0-34.0); Mean Corpuscular HGB Conc 32.1 g/dL (31.5-36.5); Mean Corpuscular Volume 91 fL (80-100); Mean Platelet Volume 10.9 fL (9.1-12.4); NEUTROPHILS ABSOLUTE AUTO 4.17 K/mm3 (1.96-9.15); NEUTROPHILS PERCENT AUTO 51 % (41-73); Platelet Count 215 K/mm3 (150-400); RDW Coefficient Variation 13.6 % (11.7-14.2); Red Blood Cell Count 4.17 M/mm3 (4.30-5.90); White Blood Cell Count 8.23 K/mm3 (4.00-11.30)
[2020-07-26 05:59] LABS: Anion Gap 5 mmol/L (6-16); Blood Urea Nitrogen 31 mg/dL (8-24); Bun/Creatinine Ratio 33.4 (12.0-20.0); CO2, Blood 29 mmol/L (21-32); Calcium, Blood 8.6 mg/dL (8.5-10.1); Chloride, Blood 114 mmol/L (98-108); Creatinine, Blood 0.93 mg/dL (0.60-1.20); Glomerular Filtration Rate >60 (60-); Glucose, Blood 97 mg/dL (70-99); Phosphorus, Blood 3.6 mg/dL (2.5-4.9); Sodium, Blood 148 mmol/L (136-145)
--- NOTE | 2020-07-26 18:27 | NUR ---
Shift Summary Patient has been sleepy today, easily awakes to verbal stimuli and follows directions when awake. Took meds fine with applesauce. Behavior has been appropriate. Did not eat breakfast or lunch, but had dinner. Nicotine patch to L shoulder. No issues with pain. Will report to oncoming RN.
--- NOTE | 2020-07-27 04:26 | NUR ---
SHIFT SUMMARY PT HAS RESTED WELL THIS SHIFT, MUCH BETTER THAN HE DID THE NIGHT PRIOR. PT ONLY ATTEMPTED TO GET OOB ONCE BUT WAS EASILY REDIRECTABLE. NO ACUTE CHANGES IN ASSESSMENT. VITALS ARE STABLE. PT STILL AWAITING PLACEMENT. BED IN LOWEST POSITION, CALL LIGHT WITHIN REACH.
--- NOTE | 2020-07-27 14:53 | NUR ---
SHIFT SUMMARY NO ACUTE CHANGES TO PRESENT THIS SHIFT. PT CONTINUES TO WAIT PLACEMENT. SLEEPING THIS AM, BUT WOKE FOR BREAKFAST. PT ABLE TO FEED SELF WITH FINGER FOODS. PT UP TO CHAIR SEVERAL TIMES. OOB SETTING ALARM OFF WANTING TO GO TO CHAIR, BUT THEN OUT OF CHAIR, SETTING OFF ALARM WANTING TO GO BACK TO BED. PT HAS BEEN PLEASANTLY CONFUSED TODAY. CO-OP WHEN GIVEN DIRECTIONS. LEGALLY BLIND WITH L ARM CONTRACTURE. NO C/O PAIN. DENIES FURTHER NEEDS. CALL LT IN REACH. BED AND CHAIR ALARMS ON FOR SAFETY.
--- NOTE | 2020-07-28 04:21 | NUR ---
SHIFT SUMMARY PATIENT ALERT AND ORIENTED X2. HE WAS UP TO DANGLE AND THEN DOWN A LOT FOR THE FIRST HALF OF THE SHIFT AND WAS RESISTIVE TO CARE DUE TO WANTING TO GO OUT AND SMOKE, AT ONE POINT BEING VERBALLY AGGRESSIVE AND CURSING AT THIS RN. WHEN LEFT ALONE FOR A LITTLE WHILE AFTER, PT WAS OTHERWISE COOPORATIVE AND PLEASANT. BED IN LOWEST POSITION WITH WHEELS LOCKED AND ALARM ON. CALL LIGHT WITHIN REACH. REPORT GIVEN TO ONCOMING RN.
--- NOTE | 2020-07-28 19:56 | NUR ---
SHIFT SUMMARY PT AWAKE AT START OF SHIFT. PLEASANT AND CO-OP. UP TO CHAIR FOR BREAKFAST AND ALL MEALS THRU OUT THE DAY. PT ABLE TO TX TO CHAIR AND BACK TO BED, BUT NEEDS 1P ASSIST D/T BLINDNESS. PT ALSO ABLE TO FEED HIMSELF AND DOES VERY WELL WHEN FOODS ARE SET UP IN FRONT OF HIM TO REACH EASILY. NO C/O PAIN. IS CONTINENT AND INCONTINENT OF URINE. BED AND CHAIR ALARMS USED FOR SAFETY. CALL LT IN REACH.
--- NOTE | 2020-07-28 20:46 | NUR ---
PATIENT BED EXIT ATTEMPT X FOUR. REPORT HE WANTS A CIGARETTE AND THAT HE WORKED ALL DAY AND WILL GO TO WORK AGAIN TOMORROW. BACK IN BED AND ALARM ACTIVATED.
--- NOTE | 2020-07-28 23:16 | NUR ---
PATIENT STILL ASKING TO SMOKE AND SITS ON SIDE OF BED. PLEASANTLY CONFUSED AT THIS TIME. BED ALARM ACTIVATED.
--- NOTE | 2020-07-29 05:05 | NUR ---
SHIFT SUMMARY PATIENT ACTIVE IN SITTING UP IN BED AND SWINGING LEGS TO SIDE OF BED AND SITS THERE. AXOX TO SELF AND PLEASANTLY CONFUSED. ASKED TO GO SMOKE T/O SHIFT. ONE ASSIST RELATED TO BLINDNESS. TOOK MEDICATION WHOLE IN APPLE SAUCE. NO IV ACCESS. DENIES PAIN, SOB, AND N/V. VSS/AFEBRILE. ON CAMERA. CALL LIGHT IN REACH. BED IN LOWEST POSITION AND ALARM ACTIVATED. WILL CONTINUE TO MONITOR UNTIL DAY SHIFT NURSE ASSUMES CARE.
--- NOTE | 2020-07-29 17:51 | NUR ---
PT HAS HAD NO CHANGES. PT AOX2 AND IS COOPERATIVE OF CARE. PT IS IMPULSIVE AND WILL GET OUT OF CHAIR AND TRY TO WALK AROUND, BUT CAN'T SEE. PT CAN BE REDIRECTED. AT TIMES PT CAN GET UPSET AND WILL CURSE AT HIS CAREGIVER, BUT THEN WILL APPOLIGIZE. PT HAS HAD CHAIR AND BED ALARMS IN USE. PT WILL NOT USE CALL LIGHT. PT SITTING IN CHAIR WILL CONTINUE TO MONITOR.
--- NOTE | 2020-07-30 03:30 | NUR ---
SHIFT SUMMARY PATIENT HAD NO ACUTE CHANGES OBSERVED. AXO TO SELF AND BLIND. IMPULSIVE SITTING UP AND SWINGING LEGS OFF SIDE OF BED. TAKES MEDICATION WHOLE IN APPLE SAUCE. NO IV ACCESS. DENIES PAIN, SOB, AND N/V. VSS/AFEBRILE. ON CAMERA. ABLE TO GET TO SLEEP EARLIER IN SHIFT. CALL LIGHT IN REACH. BED IN LOWEST POSITION AND ALARM ACTIVATED. WILL CONTINUE TO MONITOR UNTIL DAY SHIFT NURSE ASSUMES CARE.
--- NOTE | 2020-07-30 17:52 | NUR ---
HE IS EATING DINNER WHILE SITTING ON THE SIDE OF THE BED. HE GOT TIRED OF THE CHAIR. HE WAS GIVEN A PRN DOSE OF SEROQUEL THIS AFTERNOON WHEN HE WAS FEELING RESTLESS, AND RAISING HIS VOICE SWEARING. HE WAS TRYING TO ORGANIZE THINGS HE SAID. HE WANTED TO CHECK HIS STOCK OF CIGARETTES AND WANTED TO GO OUTSIDE AND SMOKE. I RE-ORIENTED HIM BUT IT TOOK A FEW REPITITIONS. HE EATS, DRINKS AND VOIDS WELL. LAST BM RECORDED WAS 2 DAYS AGO.
--- NOTE | 2020-07-31 06:54 | NUR ---
SHIFT SUMMARY PT IS A 65 Y/O MALE, ADMITTED FOR AGITATION. HE IS A&O X SELF ONLY, 2PA OUT OF BED. NO C/O ACUTE PAIN, NAUSEA OR SOB. VITAL SIGNS STABLE. PT SLEPT WELL THROUGH THE NIGHT. NO ACUTE CHANGES IN PT CONDITION NOTED. REPORT GIVEN TO ONCOMING RN.
--- NOTE | 2020-07-31 15:55 | NUR ---
SITTING UP IN THE CHAIR MOST OF THE DAY. NO COMPLAINTS. NO CHANGES.
--- NOTE | 2020-07-31 17:59 | NUR ---
NO CHANGES. HE IS ENJOYING CHICK[employer] STRIPS AND FRIES FOR DINNER.
--- NOTE | 2020-08-01 04:55 | NUR ---
TEST HOLE DRILLER SUMMARY PT A/O X1 TO SELF. SLEPT MOST OF THE NIGHT. PT DID TRY TO GET OUT OF BED A A FEW TIMES THROUGHOUT THEN NIGHT, HOWEVER WENT BACK TO SLEEP WITH REDIRECTION. DENIES PAIN, SOB. BED ALARM IN PLACE, BED IN LOWEST POSITION, CALL LIGHT WITHIN REACH. NO ACUTE CHANGES.
--- NOTE | 2020-08-01 17:23 | NUR ---
SHIFT SUMMARY PT IS ALERT TO SELF. PT SELPT MOST OF THE MORNING. ONCE AWAKE PT WALKED TO BATHROOM WITH ASSISTANCE AND THEN SAT IN CHAIR FOR LUNCH. PT HAS BEEN PLESANT WHILE AWAKE BUT IS CONFUSED ON WHERE HE IS. PT TOOK ALL AFTERNOON MEDS WITHOUT ANY ISSUESS, ONE AT A TIME IN APPLESAUCE. PT RESTING IN CHAIR AND DECLINE BEING CHECK FOR BRIEF CHANGE. CALL LIGHT WITHIN REACH AND CHAIR ALARM ON.
--- NOTE | 2020-08-02 05:53 | NUR ---
PLATE GLASS POLISHER SUMMARY PT WAS ACTIVE AT BEGINNING OF SHIFT. STAFF BROUGHT PT OUT TO SIT WITH STAFF IN HIS RECLINER WITH TAB/CHAIR ALARM IN PLACE. PT CHATTED WITH STAFF FOR A COUPLE OF HOURS. PT ASSISTED TO BED AFTER AND PT HAD SLEPT WELL OVERNIGHT. DENIES PAIN, CUSSES AND JOKES AROUND. VSS, NO ACUTE CHANGES. BED ALARM IN PLACE, CALL LIGHT WITHIN REACH. WILL CONTINUE TO MONITOR.
--- NOTE | 2020-08-02 17:57 | NUR ---
SHIFT SUMMARY. ALERT, ORIENTATED TO SELF, PLEASANT AND COOPERATIVE WITH CARE. PT DENIES PAIN, SOB, N/V. PT RECIEVED SHOWER TODAY. NO NEW CHANGES OR CONCERNS.
--- NOTE | 2020-08-03 04:43 | NUR ---
WRAP CHECKER SUMMARY NO ACUTE CHANGES. PT AAOX2, PLEASANT AND COOPERATIVE. FOLLOWS DIRECTION BUT IS STILL FORGETFUL AND CONFUSED AT TIMES. PT DENIES PAIN, SOB, N/V. 1 ASSIST FROM THE BED TO THE RECLINER. INCONTINENT AT TIMES. VSS, WILL CONTINUE TO MONITOR.
[2020-08-03 05:20] LABS: BASOPHILS ABSOLUTE AUTO 0.09 K/mm3 (0.00-0.23); BASOPHILS PERCENT AUTO 1 % (0-2); EOSINOPHILS ABSOLUTE AUTO 0.63 K/mm3 (0.00-0.68); EOSINOPHILS PERCENT AUTO 8 % (0-6); Hematocrit 35.4 % (37.0-53.0); Hemoglobin 11.9 g/dL (13.5-17.5); IMMATURE GRAN ABSOLUTE AUTO 0.03 K/mm3 (0.00-0.10); IMMATURE GRAN PERCENT AUTO 0 % (0-1); LYMPHOCYTES ABSOLUTE AUTO 2.62 K/mm3 (0.84-5.20); LYMPHOCYTES PERCENT AUTO 32 % (21-46); MONOCYTES ABSOLUTE AUTO 0.91 K/mm3 (0.16-1.47); MONOCYTES PERCENT AUTO 11 % (4-13); Mean Corpuscular HGB 30.5 pg (26.0-34.0); Mean Corpuscular HGB Conc 33.6 g/dL (31.5-36.5); Mean Corpuscular Volume 91 fL (80-100); Mean Platelet Volume 10.5 fL (9.1-12.4); NEUTROPHILS ABSOLUTE AUTO 3.99 K/mm3 (1.96-9.15); NEUTROPHILS PERCENT AUTO 48 % (41-73); Platelet Count 217 K/mm3 (150-400); RDW Coefficient Variation 13.2 % (11.7-14.2); RDW Standard Deviation 43.5 fL (35.1-46.3); White Blood Cell Count 8.27 K/mm3 (4.00-11.30)
[2020-08-03 05:52] LABS: Percent Saturation 20.9 % (20.0-50.0)
[2020-08-03 05:57] LABS: Anion Gap 5 mmol/L (6-16); Blood Urea Nitrogen 25 mg/dL (8-24); Bun/Creatinine Ratio 31.2 (12.0-20.0); CO2, Blood 28 mmol/L (21-32); Calcium, Blood 8.8 mg/dL (8.5-10.1); Chloride, Blood 110 mmol/L (98-108); Glomerular Filtration Rate >60 (60-); Glucose, Blood 90 mg/dL (70-99); Sodium, Blood 143 mmol/L (136-145)
--- NOTE | 2020-08-03 19:23 | NUR ---
PT IS A/OX2, PLEASANT AND COOPERATIVE TODAY, THE PT APPEARS TO BE BREATHING EASILY ON RA, THE PT DENIED PAIN T/O THE DAY, THE PT IS LEGALLY BLIND MEAL TRAYS WERE SET UP FOR THE PT AND HE ATE WELL, THE PT IS UP WITH ASSIST AND WAS UP IN THE CHAIR TODAY, CALL LIGHT IN REACH NO OTHER CHANGES NOTICED THIS SHIFT
--- NOTE | 2020-08-04 05:13 | NUR ---
INSPECTOR RUBBER STAMP DIE SUMMARY NO ACUTE CHANGES THIS SHIFT. PT AAOX1 BUT PLEASANT AND COOPERATIVE. DENIES PAIN, SOB, N/V. BED ALARM ON FOR SAFETY. PT ONLY ATTEMPTS TO GET OUT OF BED WHEN HE HAS TO USE THE BATHROOM, HOWEVER PT IS USUALLY ALREADY WET. 2 ASSIST TO CHANGE ATTENDS AND REPOSITION. VSS, WILL CONTINUE TO MONITOR.
--- NOTE | 2020-08-04 17:57 | NUR ---
PT IS ALERT, ORIENTED TO SELF, PT HAS BEEN PLEASANT AND COOPERATIVE, PT HAS BEEN COMPLIENT WITH MEDICATION, PT HAS BEEN UP INTO THE CHAIR FOR MEALS, PT APPEARS TO BE BREATHING EASILY ON RA AT THIS TIME, PT DENIED PAIN T/O THE DAY, CALL LIGHT IN REACH, NO OTHER CHANGES NOTICED THIS SHIFT
--- NOTE | 2020-08-05 04:03 | NUR ---
SUMMARY: PT PLEASANTLY CONFUSED BUT ORIENTED TO SELF AND HAS BEEN COOPERATIVE W/CARE TONIGHT. HE WAS UP TO HIS RECLINER, HAD SNACKS AND THEN RETURNED TO BED FOR MAJORITY OF NOCTE. URINAL ASSIST PROVIDED BUT PT WAS ALSO OCCASIONALLY INCONTINENT WHILE SLEEPING W/ATTENDS AND LINEN CHANGES REQUIRED PRN. FALL PREC'S AND CAMERA MONITORING IN PLACE. HE'S DENIED PAIN AND ALL OTHER COMPLAINTS. NO ACUTE CHANGES, VSS/AFEBRILE. PLACEMENT PENDING W/POTENTIAL D/C TO LUIS ALBERTO BEING ARRANGED. WCTM AND REPORT TO DAY RN.
--- NOTE | 2020-08-05 10:19 | NUR ---
PT HAS NOT THOUGHT ABOUT KILLING HIMSELF SINCE 06/26/20
--- NOTE | 2020-08-05 17:29 | NUR ---
SHIFT SUMMARY PT WAS CALM AND COOPERATIVE FOR MOST OF THE SHIFT EXCEPT FOR ONE OUTBURST WHEN TRYING TO RETURN TO THE BED FROM THE CHAIR. THE PT HAS DENIED ANY PAIN OR NAUSEA THIS SHIFT. NO NEW S/S THIS SHIFT, WCTM.
--- NOTE | 2020-08-05 21:06 | NUR ---
1946 REPORT RECEIVED FROM ANDRES HAMMOND, RESTING UP IN CHAIR WITH CHAIR ALARM APPLIED; ALERT AND ORIENTED X 2, ABLE TO FOLLOW SIMPLE VERBAL COMMANDS.
--- NOTE | 2020-08-06 04:13 | NUR ---
SHIFT SUMMARY: 65 Y/O MALE RESTED COMFORTABLY ALL SHIFT; DENIES PAIN OR NAUSEA; ALERT AND ORIENTED X 2, ABLE TO FOLLOW ALL SIMPLE VERBAL COMMANDS; REMOTE CAMERA OBSERVATION MAINTAINED; INCONTINENT BLADDER; BED ALARM APPLIED, BED LOW POSITION WITH CALL LIGHT AT SIDE; AWAITING PLACEMENT TO LTC AT THIS TIME.
--- NOTE | 2020-08-06 20:21 | NUR ---
SHIFT SUMMARY: NO ACUTE EVENTS THIS SHIFT. PATIENT PLEASANT AND COOPERATIVE. DENIED PAIN. EATING MEALS WELL. WAS UP IN CHAIR MOST OF THE DAY.
--- NOTE | 2020-08-07 05:14 | NUR ---
SHIFT SUMMARY LYING IN SEMI FOWLERS WITH EYES CLOSED. HAS BEEN COOPERATIVE WITH CARE THIS SHIFT. ENJOYED A SNACK OF ROAST BEEF SANDWICH AND CHEESE. NURSING ENCURAGED PO INTAKE. DENIES PAIN, DISCOMFORT, OR FURTHER NEEDS AT THIS TIME. SAFETY MEASURES IN PLACE. WILL CONTINUE TO MONITOR AND GIVE HAND OFF TO ONCOMING SHIFT USING SBAR.
--- NOTE | 2020-08-07 18:22 | NUR ---
SHIFT SUMMARY PATIENT IS PLEASANT, NO ACUTE CONCERNS TODAY. HE IS ALERT TO HIMSELF. HE IS AWAITING PLACEMENT.
--- NOTE | 2020-08-08 04:15 | NUR ---
SHIFT SUMMARY: AFEB. AAO TO SELF AT BASELINE. PLEASANT AND COOPERATIVE W/ CARES TONIGHT. NO AGGRESSION OR AGITATION TOWARDS STAFF. 1 ASSIST FOR T/F. PT BOTH CONTINENT AND INCONTINENT. ABLE TO COMMUNICATE NEEDS WHEN ASKED DIRECTLY. PT SLEPT WELL THROUGH MOST OF THE NIGHT.
--- NOTE | 2020-08-08 11:09 | NUR ---
THE SI WAS DC ON 06/26/20 before patient was admitted to medical floor
--- NOTE | 2020-08-08 18:19 | NUR ---
SHIFT SUMMARY PATIENT DENIES ANY CONCERNS AT IS TIME. HE SLEPT UNTIL 1400 THIS AFTERNOON. HE IS CURRENTLY UP IN HIS CHAIR HAVING A BEER AND FINISHING HIS DINNER. GOOD MOOD ALL DAY. 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 HE IS ALERT TO SELF ONLY.
--- NOTE | 2020-08-09 04:08 | NUR ---
SHIFT SUMMARY: AFEB. AAOX1. MOODS MORE LABILE TONIGHT. HAS BEEN AWAKE FOR MOST OF THE NIGHT. 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 REDIRECTS FAIRLY WELL, BUT RETURNS TO THIS THOUGHT SEVERAL TIMES TONIGHT. ASSISTED UP TO CHAIR WHERE PT IS CURRENTLY EATING A SANDWICH AND LISTENING TO A MOVIE. DENIES PAIN. NO ACUTE CHANGES TONIGHT. WILL CONT TO MONITOR.
--- NOTE | 2020-08-09 17:22 | NUR ---
SHIFT SUMMARY PATIENT SLEPT UNTIL 1700. NO ACUTE CONCERNS FROM PATIENT AT THIS TIME. HE IS SITTIN IN HIS CHAIR AWAITING DINNER. HE IS HAVING A CUP OF COFFEE. HE HAD A PARTIAL BATH TODAY AND IS CLEAN SKIN AND VALERIY AREA. HE DOES NOT AGREE WITH ORAL CARE BUT DOES WELL WITH EVERYTHING ELSE.
--- NOTE | 2020-08-10 06:40 | NUR ---
SHIFT SUMMARY: VSS. AFEB. AA0X1. AWAKE INTERMITTENTLY THROUGH THE NIGHT. OCCASIONAL SHORT EPISODES OF AGITATION. EASILY REDIRECTED. MOSTLY PLEASANT. FREQUENTLY INCONTINENT, ALTHOUGH PT DOES ATTEMPT TO STAND AND MAKE IT TO THE BATHROOM EACH TIME WITHOUT SUCCESS. BED AND CHAIR ALARMS ON. NO ACUTE CHANGES OVERNIGHT.
--- NOTE | 2020-08-10 21:43 | NUR ---
ASSUMED CARE. RAQUEL IS UP IN THE CHAIR. EXTENSION DIVISION DIRECTOR CHANGING THE BED. HE IS AOX1, CALM AND COOPERATIVE. CONTINUES TO STATES HE IS CONFUSED AND DOES NOT KNOW WHERE HE IS AT. ORIENTED HIM BUT HE DOES NOT REMEMBER. DENIES ANY PAIN OR DISCOMFORT. LUNG SOUNDS ARE CLEAR. HR SINUS. REDNESS IN GROIN AND BUTTOCKS. TOOK HIM TO THE BATHROOM, VOIDED SMALL YELLOW AMOUNT. HE IS NOW UP IN THE CHAIR, BEER GIVEN, PRETENDING TO SMOKE ON A FAKE CIGARETTE. CHAIR ALARM IS ON. CALL LIGHT IS IN REACH.
--- NOTE | 2020-08-11 05:17 | NUR ---
SHIFT SUMMARY: AOX1, LEGALLING BLIND. COOPERATIVE, DOES GET AGGITATED AT TIMES BUT IS EASILY RE-DIRECTED. IMPULSIVE SETTING OFF ALARMS. UNSTEADY ON FEET, FALL RISK DUE TO SIGHT. BP RUNNING 150'S TONIGHT. HR REGULAR RYTHEM. LUNG SOUNDS CLEAR. SLEPT OFF AND ON THIS SHIFT. TENDS TO GET UP AND PRETENDS TO SMOKE ON FAKE CIGARETTE. HAD PARTIAL OF HIS BEER TOO. LATER GOT UP AND COMPLAINTED OF TESTICLE HURTING, RIGHT TESTICLE IS SLIGHTLY MORE SWOLLEN AND TENDER NO REDNESS. URINATING WELL HE PEE'D ON THE FLOOR. CALL LIGHT HAS REMAINED IN REACH, ALARMS ARE SET. AWAITING PLACEMENT, CASE MANAGEMENT IS WORKING ON DISCHARGE
--- NOTE | 2020-08-11 11:22 | NUR ---
PT ALERT AND ORIENTED TO SELF. OFTEN USES ABRASIVE LANGUAGE. SEEMS TO BE IN A TALENT REP MOOD THIS MORNING. PT IS LEGALLY BLIND, REMOVED PT FROM ROOM AFTER HIS MORNING SHOWER SO LIGHTS COULD BE REPLACED. PT BEGAN YELLING OUT LOUDLY WHEN STAFF ASSISTED HIM BACK TO HIS ROOM, FOUL LANGUAGE OCCASSIONALLY, BUT STILL REDIRECTABLE.
--- NOTE | 2020-08-11 14:30 | NUR ---
CALLED DR FORD- PER REPORT FROM NIGHT RN PT HAD C/O PAIN IN HIS GROIN LAST NIGHT, NIGHT RN NOTED THE RIGHT TESTICLE WAS LARGER THAN THE LEFT AND HARD. NOTED THIS MORNING THAT THIS WAS STILL THE CASE ALTHOUGH THE PT NO LONGER HAS A C/O PAIN IN THE AREA. RECIEVED ORDER FOR SCROTAL US. WILL COME TO SEE THE AREA SOON.
--- NOTE | 2020-08-11 14:46 | NUR ---
DR. FORD AT THE BEDSIDE TO EXAMINE THE ENLARGED SCROTUM. ORDER RECIEVED TO DC THE SCROTAL ULTRASOUND. THE PT IS HAVING SCROTAL EDEMA BASED ON POSITIONING AND POSSIBLY BEING SAT ON. DR RECOMENDS TRYING TO PROMOTE POSITIONS THAT DO NOT APPLY PRESSURE TO THE AREA IF POSSIBLE. PT IS CONFUSED FREQUENTLY AND REPOSITIONS HIMSELF SO THIS MAY BE A CHALLENGE. WILL CTM.
--- NOTE | 2020-08-11 17:57 | NUR ---
SHIFT SUMMARY- PT ALERT AND ORIENTED TO SELF. PT HAS BEEN COOPERATIVE TODAY AND MOSTLY PLEASENT. PT SAT UP IN THE RECLINER ONCE FOR A SMOKE (PT HAS AN ARTIFICIAL CIGGARETTE). THIS SEEMS TO CALM HIM WHEN HE USES IT. PT HAD A SHOWER EARLY THIS MORNING, AND HAS BEEN VOIDING INCONTINENTLY T/O THE SHIFT. SPOKE TO ABOUT THE PT ENLARGED RIGHT SIDE OF THE SCROTUM, RECOMENDED THAT STAFF ATTEMPT TO PROMOTE THE PT STAYING IN POSSITIONS THAT DO NOT PINCH THAT AREA. ATTEMPTS HAVE BEEN MADE, BUT THE PT FREQUENTLY REPOSITIONS HIMSELF. WILL PASS ON TO NIGHT RN IN REPORT.
--- NOTE | 2020-08-11 19:53 | NUR ---
ASSUMED CARE. RAQUEL IS ASLEEP IN HIS CHAIR. AWAKES TO NAME. PLEASANT BUT VERY TIRED. DENIES PAIN, STATES HIS TESTICLE IS FEELING BETTER, STILL SWOLLEN SLIGHTLY. NO REDNESS. GOOD APPETITE. LUNGS CLEAR, HR SINUS. BT X4 DOES NOT REMEMBER IF HE HAD A BM. PER DAYSHIFT URINATING WELL. ATTENDS DRY. SKIN PWD NO CHANGES OR BREAKDOWN. CHAIR ALARM ON, CALL LIGHT IN REACH.
--- NOTE | 2020-08-12 05:40 | NUR ---
SHIFT SUMMARY: AOX1, REMAINED PLEASANT THIS SHIFT. VERY TIRED AND FATIQUED. FELL ASLEEP IN CHAIR SEVERAL TIMES, ONCE IN BED SLEPT THROUGHOUT THE NIGHT EVEN THROUGH AM VITALS. VS WNL, AFEBRILE. NO ACUTE CHANGES TO REPORT. BED ALARM IS ON, CALL LIGHT IS IN REACH.
--- NOTE | 2020-08-12 07:30 | NUR ---
ASSUMED CARE OF PT- PT SLEEPING THIS MORNING, WOKE TO THE SOUND OF STAFF VOICES. NOTES SLIGHT WHEEZE ON ASSESSMENT. RIGHT SCROTAL EDEMA IMPROVED PER REPORT. PT DOES NOT WANT THAT TO BE ASSESSED THIS MORNING WILL ASSESS AT A LATER TIME WHEN HE IS MORE AWAKE. PT INCONTINENT OF BLADDER NO STOOL SINCE 08-09-2020 PRUN/APPLE JUICE WITH BUTTER INEFFECTIVE LAST NIGHT.
--- NOTE | 2020-08-12 17:16 | NUR ---
SHIFT SUMMARY- PT ALERT AND ORIENTED TO SELF. PT LEGALLY BLIND AND IS A HIGH FALL RISK. PT HAS HAD NO ACUTE CHANGES T/O THE SHIFT AND IS STILL AWAITING PLACEMENT. NO IV ACCESS, DENIES THE NEED FOR PAIN MEDICATION. INCONTINENT OF BLADDER NO BM TODAY. WILL CTM AND PASS ON TO NIGHT RN IN REPORT.
--- NOTE | 2020-08-12 21:34 | NUR ---
INERMITENT SLEEPING. NURSE ANNOUNCED SELF BEFORE ENTERING ROOM ( HE IS EGALLY BLINE AND REPORTEDLY GETS FEARFUL AND POSSIBLY COMBATIVE IF HE ETS SCARED). COOPERATIVE, ACCEPTED MEDS. DENIED PAIN. NO NOTED S/S ACUTE PHYSICAL DISTRESS. ON CAMERA. CALL LIGHT IN REACH. ABLE TO GET SELF BACK IN BED BY SELF WITHOUT NOTED DIFFICULTIES. WILL CONT TO MONITOR
--- NOTE | 2020-08-13 04:26 | NUR ---
SHIFT SUMMARY HAS BEEN RESTING QUIETLY WITH FEW INTERRUPTIONS THIS SHIFT. AWAKENED TO CHANGE HIM FOR INCONT OF URINE X 1 OF THIS WRITING. COMPLIANT WITH STAFF REQUESTS, NO NOTED NEGATIVE ACTING OUT. CALL LIGHT IN REACH
--- NOTE | 2020-08-13 14:22 | NUR ---
PT HAS BEEN SLEEPING ALOT TODAY. WOKE AND OFFERED THE URINAL PT DECLINED BUT WAS WILLING TO LET STAFF CHECK HIS ATTEND. FRANK PT, STILL NO STOOL SINCE 08-09 GAVE TEDDY WILL ATTEMPT PRUNE JUICE IF NO RESULT SOON.
--- NOTE | 2020-08-13 16:44 | NUR ---
SHIFT SUMMARY- PT CONTINUES TO BE SLEEPY, HE WAKES TO STAFF VOICES AND IS COOPERATIVE WITH ALL CARE. PT WILL ALWAYS DENIE THAT HIS ATTENDS ARE WET BUT HE FREQUENTLY IS. HE IS VERY COOPERATIVE AND ACCEPTING OF CARE. STILL NO BM TODAY. MAKING A PRUNE JUICE/APPLE JUICE/ BUTTER COCTAIL TO ATTEMPT TO ACHIEVE A BM. WILL CTM AND PASS ON TO NIGHT RN IN REPORT.
--- NOTE | 2020-08-13 21:41 | NUR ---
PATIENT IS PLEASANT AND TALKATIVE WITH STAFF. NO COMPLAINTS OF PAIN. MOVES SELF TO POSITION OF COMFORT IN BED. BED ALARM IS ON. TAKES HIS MEDICATIONS WITH APPLESAUCE EASILY. INCONTINENT OF URINE. PATIENT HAS NOT HAD A BM IN 4 DAYS PER EHR. CALL LIGHT IN REACH.
--- NOTE | 2020-08-14 05:24 | NUR ---
PATIENT HAS SLEPT MOST OF THE NIGHT, HE HAS BEEN UP IN THE RECLINER CHAIR SLEEPING FOR 4 HOURS. HE HAS HAS URGE INCONTINENCE TWICE THIS SHIFT, ALBE TO STAND WITH ASSISTANCE, BUT STARTS TO VOID PRIOR TO GETTING THE URINAL IN PLACE. NO ACUTE CHANGES. CALL LIGHT IN PLACE.
--- NOTE | 2020-08-14 17:50 | NUR ---
SHIFT SUMAMRY: NO ACUTE CHANGES TO REPORT THIS SHIFT. PT A&O; CALM AND COOPERATIVE WITH CARE. NO C/O PAIN THIS SHIFT. PT IS LEGALLY BLIND; ABLE TO SEE SHAPES AT CLOSE DISTANCE. PO MEDS WHOLE IN APPLESAUCE. PT/OT FOLLOWING. AWAITING PLACEMENT. WCTM.
--- NOTE | 2020-08-14 22:21 | NUR ---
ASSUMED CARE. RAQUEL WALL IN BED, AWAKEN BY NAME. DENIES ANY PAIN OR DISCOMFORT. STATES HE IS JUST HANGING OUT. REPORTS FATIQUE. OVERALL ASSESSMENT IS BENIGN. ATTENDS DRY. DENIES NEEDS TO GO TO THE BATHROOM. ADMINISTERED MEDS. OFFERED WATER. CALL LIGHT IS IN REACH ANDN BED ALARM IS ON. WILL CONTINUE TO MONITOR.
--- NOTE | 2020-08-15 05:11 | NUR ---
SHIFT SUMMARY: AOX1, PLEASANT AND COOPERATIVE. NO BEHAVIORAL ISSUES. FOLLOWS DIRECTIONS WELL. VS WNL, AFEBRILE. SLEPT WELL THROUGHOUT THE NIGHT. NO CHANGES TO REPORT. AWAITING PLACEMENT. BED ALARM ON, CALL LIGHT IN REACH.
--- NOTE | 2020-08-15 17:52 | NUR ---
SHIFT SUMMARY: NO ACUTE CHANGES TO REPORT THIS SHIFT. PT A&O X1; CALM AND COOPERATIVE WITH CARE. LEGALLY BLIND. NO C/O PAIN THIS SHIFT. PT/OT FOLLOWING. AWAITING PLACEMENT. WCTM.
--- NOTE | 2020-08-16 04:28 | NUR ---
SHIFT SUMMARY PT A&OX3 (SELF, YEAR, AND TOWN). FORGETFUL/CONFUSED @ TIMES. PT IS CALM AND COOPERATIVE WITH CARE. SLEPT T/O THE NIGHT AND APPEARED TO BE IN NO PAIN OR DISTRESS WHEN ROUNDED ON. EASILY ARROUSED AND WILL HOLD A CONVERSATION. PT REQUESTED A SNACK DURING THE SHIFT. CHEESE AND CRACKERS WERE PROVIDED. PT IS CURRENTLY SLEEPING WITH CALL LIGHT WITHIN REACH AND BED IN LOWEST POSITION.
--- NOTE | 2020-08-16 17:56 | NUR ---
SHIFT SUMMARY: NO ACUTE CHANGES TO REPORT THIS SHIFT. PT A&O X2-3; OCC CONFUSION & IRRITABILITY; COOPERATIVE WITH CARE. PT IN NO APPARENT DISTRESS/NO C/O PAIN. ASPIRATION PRECAUTIONS; PO MEDS WHOLE IN APPLESAUCE. PT UP TO BR c SBA. AWAITING PLACEMENT. WCTM.
--- NOTE | 2020-08-17 04:01 | NUR ---
SHIFT SUMMARY NO ACUTE CHANGES THIS SHIFT, PT ALERT AND ORIENTED X2. PT SLEEPING PEACEFULLY A MORJITY OF THE TIME. PT HAD SOME NONSCENSICAL COMMENTS AT TIMES AND POSSIBLY SOME VISUAL HALLUCINATIONS. NO AGITATION DURING SHIFT. PLEASANT AND COOPERATIVE, NO COMPLAINTS OF PAIN OR APPEARANCE OF DISTRESS. PT AWAITING PLACEMENT. PT IS CURRENTLY SLEEPING WITH CALL LIGHT WITHIN REACH AND BED ALARM ON.
--- NOTE | 2020-08-17 15:47 | NUR ---
SUMMARY DR DUMONT STATE PT WILL CONTINUE TO AWAIT PLACEMENT, UNABLE TO RETURN TO FORMER LIVING ARRANGEMENTS w [facility]. MEDICALLY STABLE. HE IS A/O X2-3, HX DEMENTIA, SOMEWHAT FORGETFUL. HE IS LEGALLY BLIND, ABLE TO SEE SHAPES, ABLE TO FEED HIMSELF AFTER SETUP. REQUIRES ASSIST TO GET UP TO CHAIR/BR, 1 ASSIST w SADAF. HE IS GENERALLY CALM COOPERATIVE HOWEVER IF HE BECOMES FRUSTRATED CAN BE AGITATED, YELL/CURSE/THREATEN, THEN DE-ESCALATES, APOLOGETIC. SOMEWHAT IMPULSIVE, WILL GET UP W/O CALLING FOR ASSIST, REQUIRE ALARMS/CAMERA MX. VSS.
--- NOTE | 2020-08-17 19:38 | NUR ---
VERIFIED VIDEO MONITORING CALLED SCU PLASTIC AND RECONSTRUCTIVE SURGEON AND VERIFIED VIDEO MONITORING
--- NOTE | 2020-08-18 04:50 | NUR ---
SHIFT SUMMARY ADMITTED FOR AGITATION/DEMENTIA. DNR CODE. PREVIOUSLY LIVED AT [facility], NOW PLAN IS FOR PLACEMENT ELSEWHERE. HE IS A 1 ASSIST W/BRP. HE HAS HAD BRIEF PERIODS OF AGITATION IN THE PAST, BUT WAS COOPERATIVE AND PLEASANT THROUGHOUT THIS SHIFT. HE IS LEGALLY BLIND AND CAN SEE SHAPES AND COLORS. [facility] IS SCHEDULED FOR HX OF AFIB
[2020-08-18 10:28] LABS: BASOPHILS ABSOLUTE AUTO 0.07 K/mm3 (0.00-0.23); BASOPHILS PERCENT AUTO 1 % (0-2); EOSINOPHILS ABSOLUTE AUTO 0.54 K/mm3 (0.00-0.68); EOSINOPHILS PERCENT AUTO 7 % (0-6); Hemoglobin 12.4 g/dL (13.5-17.5); IMMATURE GRAN ABSOLUTE AUTO 0.02 K/mm3 (0.00-0.10); IMMATURE GRAN PERCENT AUTO 0 % (0-1); LYMPHOCYTES ABSOLUTE AUTO 2.19 K/mm3 (0.84-5.20); LYMPHOCYTES PERCENT AUTO 30 % (21-46); MONOCYTES ABSOLUTE AUTO 1.01 K/mm3 (0.16-1.47); MONOCYTES PERCENT AUTO 14 % (4-13); Mean Corpuscular HGB Conc 31.8 g/dL (31.5-36.5); Mean Corpuscular Volume 91 fL (80-100); Mean Platelet Volume 10.5 fL (9.1-12.4); NEUTROPHILS ABSOLUTE AUTO 3.57 K/mm3 (1.96-9.15); NEUTROPHILS PERCENT AUTO 48 % (41-73); Platelet Count 247 K/mm3 (150-400); RDW Coefficient Variation 13.5 % (11.7-14.2); RDW Standard Deviation 45.6 fL (35.1-46.3); Red Blood Cell Count 4.27 M/mm3 (4.30-5.90)
[2020-08-18 11:24] LABS: Alanine Aminotransfer (ALT/SGP 29 U/L (12-78); Albumin, Blood 3.1 g/dL (3.4-5.0); Albumin/Globulin Ratio 0.9 (0.8-1.8); Alk Phos 87 U/L (50-136); Anion Gap 6 mmol/L (6-16); Aspartate Aminotrans (AST/SGOT 25 U/L (12-37); Bilirubin, Total 0.3 mg/dL (0.1-1.0); Blood Urea Nitrogen 35 mg/dL (8-24); Bun/Creatinine Ratio 35.4 (12.0-20.0); CO2, Blood 26 mmol/L (21-32); Calcium, Blood 8.9 mg/dL (8.5-10.1); Chloride, Blood 110 mmol/L (98-108); Creatinine, Blood 0.99 mg/dL (0.60-1.20); Globulin, Blood 3.5 g/dL (2.2-4.0); Glomerular Filtration Rate >60 (60-); Glucose, Blood 70 mg/dL (70-99); Potassium, Blood 4.1 mmol/L (3.5-5.5); Sodium, Blood 142 mmol/L (136-145); Total Protein, Blood 6.6 g/dL (6.4-8.2)
--- NOTE | 2020-08-18 15:14 | NUR ---
SUMMARY PT OOB TO CHAIR THIS AM, HAS STAYED UP. HE AMBULATED IN [place] w SBA/GB, FREQUENT CUES D/T BLINDNESS. HE HAS BEEN CALM/PLEASANT/TALKATIVE, NO OUTBURSTS OR YELLING OUT. GOOD APPETITE. HE ATTEMPTS TO BE CONTINENT HOWEVER UNSUCCESSFUL, IN ATTENDS/PULLUPS. XLRG BM TODAY. VSS. DR DUMONT STATE WE CONTINUE TO AWAIT PLACEMENT.
--- NOTE | 2020-08-18 19:48 | NUR ---
CALLED VIDEO MONITOR VERIFIED VIDEO MONITORING IS IN PLACE
--- NOTE | 2020-08-19 04:56 | NUR ---
SHIFT SUMMARY ADMITTED FOR AGITATION/DEMENTIA. DNR CODE. HE IS FROM [facility], CURRENTLY AWAITING PLACEMENT AT A NEW FACILITY. HE IS LEGALLY BLIND, HE CAN SEE SHAPES AND COLORS. HE WAS COOPERATIVE WITH CARE THIS SHIFT, HE DID USE HIS CALL BUTTON APPROPRIATELY. HE SLEPT THROUGHOUT SHIFT. NO NEW CONCERNS THIS SHIFT.
--- NOTE | 2020-08-19 17:10 | NUR ---
PT IS ALERT ORIENTED TO SELF AND PLACE, THE PT HAS BEEN PLEASANT AND COOPERATIVE T/O THE DAY, THE PT WAS UP ON THE SIDE OF THE BED FOR MEALS, AND HE FELT HE NEEDED, THE PT AMBULATED TO THE BATHROOM THIS AM, PT IS BLIND AND NEEDS STAND BY ASSIST FOR DIRECTION, PT WAS ASSISTED WITH MEAL SET UP AND WAS ABLE TO EAT ALL OF HIS MEALS WITH MINIMAL ASSISTANCE, PT APPEARS TO BE BREATHING EASILY ON RA AT THIS TIME, CALL LIGHT IN REACH
--- NOTE | 2020-08-20 05:14 | NUR ---
SHIFT SUMMARY ADMITTED FOR AGITATION/DEMENTIA. DNR CODE. PLAN IS FOR PLACEMENT. PT KNOWS WHEN HE NEEDS TO URINATE AND CALLS APPROPRIATELY, HOWEVER HE BECOMES INCONTINENT ON THE WAY TO THE BATHROOM. HE IS LEGALLY BLIND SEEING SHAPES AND COLORS. HE WAS CALM AND COOPERATIVE, SLEEPING THROUGHOUT SHIFT. NO NEW CONCERNS
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
--- NOTE | 2020-08-21 05:02 | NUR ---
INSPECTOR HOT FORGINGS SUMMARY NO ACUTE CHANGES THIS SHIFT. PT AAOX2, PLEASANT AND COOPERATIVE WITH CARE. TOOK HS MEDS WITH WATER WITHOUT ISSUES. DENIED PAIN, SOB, N/V. PT HAS SLEPT MOST OF THE NIGHT. VSS, WILL CONTINUE TO MONITOR.
--- NOTE | 2020-08-21 19:03 | NUR ---
SHIFT SUMMARY UNEVENTFUL DAY. DENIED PAIN. SET OFF BED ALARM A FEW TIMES FOR SBA TO BR. INCONTINENT URINE AND STOOL THIS SHIFT. NO ANGER /AGGRESSIVE OUTBURSTS THIS SHIFT. CALL LIGHT IN REACH, BED ALARM ON
--- NOTE | 2020-08-22 05:39 | NUR ---
WEB PAGE DESIGNER SUMMARY NO ACUTE CHANGES. PT AAOX2, HAS BEEN PLEASANT AND COOPERATIVE WITH CARE TONIGHT. PT HAS SLEPT MOST OF THE NIGHT AND HAS VOIDED MULTIPLE TIMES. WAITING PLACEMENT.
--- NOTE | 2020-08-22 19:23 | NUR ---
SHIFT SUMMARY RAQUEL WAS CALM AND COOPERATIVE THIS SHIFT. INCONTINENT IN BRIEF, AMMENABLE TO CARE. UP IN CHAIR MOST OF THE DAY. GOOD APPETITE. CALL LIGHT IN REACH
--- NOTE | 2020-08-23 05:42 | NUR ---
SHIFT SUMMARY PT HAD UNEVENTFUL NIGHT. SLEPT THROUGHOUT THE NIGHT WHEN NOT BEING WOKEN BY STAFF. MOSTLY INCONTINENT. PT DID ATTEMPT TO GET UP TO THE RESTROOM X 2 BUT HAD ALREADY VOIDED BY THE TIME HE REACHED THE RESTROOM. PT ALSO HAD A BOWEL MOVEMENT TONIGHT. VITAL SIGNS STABLE. NO ACUTE CHANGES THIS EVENING. WILL CONTINUE TO MONITOR AND REPORT TO DAY RN.
--- NOTE | 2020-08-23 17:37 | NUR ---
SHIFT SUMMARY PATIENT IS ALERT, ORIENTED TO SELF. PATIENT HAS BEEN PLEASANT MOST OF THIS SHIFT. PATIENT SITTING UP, CALMLY IN THE BED MOST OF THIS SHIFT. PATIENT OCCASIONALLY CALLS OUT. PATIENT HAS DENIED NEEDS MOST OF THIS SHIFT. PATIENT IS CURRENTLY SITTING UP IN BED EATING DINNER.
--- NOTE | 2020-08-24 05:25 | NUR ---
SHIFT SUMMARY PT HAD AN UNEVENTFUL NIGHT. SLEPT MUCH OF THE NIGHT. SET OFF BED ALARM SEVERAL TIMES BUT WAS EASILY REDIRECTED BACK TO BED. INCONTINENT THIS EVENING. NO COMPLAINTS OF PAIN OR DISCOMFORT. AWAITING GAURDIANSHIP AND PLACEMENT. VITAL SIGNS STABLE. WILL CONTINUE TO MONITOR.
--- NOTE | 2020-08-24 17:27 | NUR ---
SHIFT SUMMARY PATIENT ALERT AND CONFUSED THIS SHIFT. PATIENT HAS BEEN CALM AND COOPERATIVE THROUGHOUT THIS SHIFT. PATIENT SITTING UP IN BED MUCH OF THE MORNING AND UP IN THE BEDSIDE CHAIR THROUGHOUT THE AFTERNOON. PATIENT DENIES PAIN OR FURTHER NEEDS THROUGHOUT THIS SHIFT. PATIENT HAS FREQUENTLY FORGOTTEN TO CALL PRIOR TO STANDING THIS SHIFT. PATIENT REMAINS A HIGH FALL RISK. PATIENT IS CURRENTLY SITTING UP IN BED WATCHING TELEVISION.
--- NOTE | 2020-08-25 06:21 | NUR ---
SHIFT SUMMARY PATIENT WAS PLEASANT AND COOPORATIVE THIS SHIFT. HE HAD NO COMPLAINTS OF PAIN AND WAS ABLE TO SLEEP ALL NIGHT. BED IN LOWEST POSITION WITH WHEELS LOCKED AND ALARM ON. CALL LIGHT WITHIN REACH. REPORT GIVEN TO ONCOMING RN.
--- NOTE | 2020-08-25 18:29 | NUR ---
SHIFT SUMMARY PT IS A&OX2. PT KNOWS NAME AND . PT CURENLKAY ALCANTARA HE'S IN HIS APARTMENT. PT SELPT MOST OF THE MORNING AND WAS WOKEN UP FOR LUNCH BY STAFF. PT HAS BEEN PLESANT DURING SHIFT. PT SITTING IN CHAIR AND WATCHING TV. PT DENIES P/N/V. PT JUST FINISHED EATING DINNER. CALL LIGHT W/IN REACH.
--- NOTE | 2020-08-26 05:00 | NUR ---
SHIFT SUMMARY NO ACUTE CHANGES THIS SHIFT. PT IS A&O TO SELF AND . PT WAS COMFORTABLE SITTING UP IN HIS CHAIR THE MAJORITY OF THIS SHIFT. HAS BEEN PLEASANT AND COOPERATIVE WITH CARE. PT IS NOW LAYING IN BED WITH EYES CLOSED, EVEN AND UNLABORED RESPIRATIONS. BED IN LOWERED POSITION WITH ALARM IN PLACE. CALL LIGHT AND PERSONAL ITEMS WITH IN REACH. NO APPARENT NEEDS OR DISTRESS AT THIS TIME, WILL CONTINUE TO MONITOR UNTIL REPORT GIVEN TO DAY RN.
--- NOTE | 2020-08-26 18:21 | NUR ---
SHIFT SUMMARY PT IS A&O TO SELF. PT HAS BEEN PLEASANT FOR THIS SHIFT. PT SELPT UNTILL LUNCH TIME AND WAS WOKEN BY STAFF. PT IS A ONE PERSON TRANSFER WITH FWW. PT TRIED TO TRANSFER SELF ONE TIME THIS SHIFT W/O ASSISTANCE. PT ACCEPTED ALL CARE AND TOOK MEDICATIONS W/O ISSUES. DURING AFTERNOON VITALS PT HAD AN ELEVATED BP AND WAS MEDICATED PER EMAR. PT DENIES P,N,V. PT CURENLTY IN ROOM LISTENING TO TV. CALL LIGHT W/IN REACH.
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
--- NOTE | 2020-08-27 13:31 | NUR ---
HE HAS BEEN UP IN THE CHAIR SINCE BREAKFAST EXCEPT FOR A COUPLE OF SHORT WALKS TO THE BATHROOM. HE IS UNFORTUNATELY INCONTINENT FIRST BEFORE WALKING IN THERE. PULL UPS CHANGED. I DID NOT SEE REDNESS BUT HIS SCROTUM IS SWOLLEN. A TEAR DOWN WORKER SAID IT WAS PAINFUL TO HIM LAST NIGHT. HE IS NEARLY BLIND AND NEEDS LOTS OF DIRECTION WHEN AMBULATING.
--- NOTE | 2020-08-27 18:15 | NUR ---
NO NEW ISSUES. HE DOES HAVE A SWOLLEN SCROTUM. HE REMAINS MOSTLY INCONTINENT. HE EATS AND DRINKS WELL. WAITING FOR GUARDIANSHIP AND PLACEMENT.
--- NOTE | 2020-08-28 12:03 | NUR ---
HE WAS SLEEPING ON HIS R SIDE AT SHIFT CANGE AND SLEPT IN AWHILE, THEN ATE A LATE BREAKFAST. HE HAS BEEN PLEASANT AND COOPERATIVE. HE REMAINS ORIENTED X1. NO COMPLAINTS. VSS.
--- NOTE | 2020-08-28 15:21 | NUR ---
NO CHANGES. HE HAS NOT WANTED TO GO BACK TO BED YET TODAY.
--- NOTE | 2020-08-28 15:55 | NUR ---
CAME BY TO ASSESS RAQUEL'S SCROTUM BUT RAQUEL WAS STILL UP IN THE CHAIR. HE'LL TRY AGAIN TOMORROW. THE ESTERS AND EMULSIFIERS SUPERVISOR ALSO EVALUATED HIS SITUATION AND MADE A FEW CHANGES.
--- NOTE | 2020-08-28 17:47 | NUR ---
HE IS BACK IN THE CHAIR FOR DINNER AFTER HE AGREED TO LAY ON THE BED SO THAT I COULD ASSESS HIS SWOLLEN SCROTUM. IT IS ACTUALLY ONLY MILDLY TO MODERATELY SWOLLEN. IT IS NOT RED AND HE DENIES ANY DISCOMFORT WITH IT. NO CHANGES IN HIS ROUTINE OR STATUS TODAY. HE HAS BEEN VERY COOPERATIVE.
--- NOTE | 2020-08-29 03:47 | NUR ---
SHIFT SUMMARY PATIENT HAD NO ACUTE CHANGES OBSERVED. AXO X 1-2 AND ONE ASSIST TO BR. USES URINAL AT BEDSIDE WITH ASSIST. NO IV ACCESS. TAKES MEDICATION WHOLE WITH APPLE SAUCE. VSS/AFEBRILE. DENIES PAIN, SOB, AND N/V. LEGALLY BLIND. CALL LIGHT IN REACH. BED IN LOWEST POSITION AND ALARM ACTIVATED. WILL CONTINUE TO MONITOR UNTIL DAY SHIFT NURSE ASSUMES CARE.
--- NOTE | 2020-08-29 11:01 | NUR ---
1100 PT CONTINUES TO SLEEP . DUE TO HIS UNPREDICTABLILTY AND AGRESSION , PT IS ALLOWED TO SLEEP. MEDS GIVEN ACCORDINLGY ONCE HE IS AWAKE.
--- NOTE | 2020-08-29 17:32 | NUR ---
PT HAS HAD NO ACUTE CHANGES. HE IS QUITE PLEASANT WITH STAFF, FRIENDLY AND COOPERATIVE. SLEPT ALL MORNING. PT HAS BEEN QUITE HUNGRY ALL SHIFT AND GIVEN SNACKS REQUESTED. NO ACUTE CHANGES TO PT.
--- NOTE | 2020-08-29 21:58 | NUR ---
BED EXIT ACTIVATING ALARM. PATIENT ATTEMPTING TO VOID ON WALL. REDIRECTED AND GIVEN URINAL. BACK IN BED AND ALARM ACTIVATED.
--- NOTE | 2020-08-30 03:58 | NUR ---
SHIFT SUMMARY PATIENT HAD NO ACUTE CHANGES OBSERVED. ALERT TO SELF AND ONE ASSIST TO BSC. PATIENT BED EXIT X ONE AND STARTED TO VOID ONTO WALL BEFORE REDIRECTED TO USE URINAL WITH ASSIST. TAKES MEDICATION WHOLE WITH APPLE SAUCE. DENIES PAIN, SOB, AND N/V. VSS/AFEBRILE. UP IN CHAIR FIRST PART OF SHIFT BEFORE BACK INTO BED. CALL LIGHT IN REACH. BED IN LOWEST POSITION. WILL CONTINUE TO MONITOR UNTIL DAY SHIFT NURSE ASSUMES CARE.
--- NOTE | 2020-08-30 18:25 | NUR ---
NO ACUTE CHANGES. PT IS CONTENT AND AGREEABLE ALL DAY. HE ENJOYS SITING IN HIS CHAIR HOLDING A FAKE CIGARETTE BETWEEN HIS FINGERS WHILE HE LISTENS TO THE TV. PT IS ABLE TO EXPRESS ANY NEEDS . CALL LIGHT CEZAR ANGEL. BED ALARM ON.
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
--- NOTE | 2020-08-31 19:25 | NUR ---
NO ACUTE CHANGES THIS SHIFT. PATIENT CONTINUES TO AWAIT PLACEMENT.
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
--- NOTE | 2020-09-02 04:19 | NUR ---
PT continues quiet & cooperative withdrawn but pleasant when approached. Drank anabela ensure with set up & cues, needs fed soft pudding. Incontinent of bowel & bladder. PT takes meds whole in applesauce . Needsassist with ADLS, extra time due to blindness. . Needs safe placement.
--- NOTE | 2020-09-02 17:40 | NUR ---
SHIFT SUMMARY: NO ACUTE EVENTS. DENIES PAIN. TOLERATING DIET, DENIES N/V. UP IN CHAIR MOST OF THE DAY. PLAN IS FOR PLACEMENT AT [facility] AFTER GUARDIANSHIP PROCESS COMPLETE.
--- NOTE | 2020-09-03 04:39 | NUR ---
AMUSEMENT CENTRE MANAGER SUMMARY PT WAS VERY CONFUSED AT THE START OF THE SHIFT HE THOUGHT HE WAS AT HIS HOME. THE PT WAS PLEASANT AND COOPERATIVE W CARE THIS SHIFT. PT SLEPT COMFORTABLY FOR MOST OF THE SHIFT. PT DENIED ANY PAIN OR NAUSEA THIS SHIFT. WCTM.
--- NOTE | 2020-09-03 19:41 | NUR ---
SHIFT SUMMARY: NO ACUTE EVENTS TODAY. PT CALM AND COOPERATIVE. UP IN CHAIR ALL DAY. GOOD APPETITE. GUARDIANSHIP PAPERWORK FROM THE [place] COURT DELIVERED HERE TODAY, GIVEN TO CARPET INSPECTOR FINISHED Lucero TARANGO (UNSURE IF NOTARY IS NEEDED). NO BM TODAY. USING URINAL WITH ASSISTANCE. PLAN IS PLACEMENT AFTER GUARDIANSHIP ESTABLISHED.
--- NOTE | 2020-09-04 07:40 | NUR ---
09/04/19 0600 VITALS STABLE. CONFUSED AND CHAIR/BED ALARMS ON. DENIES ANY PAIN. VOIDING AND TAKING ORAL FLUIDS WELL. UNEVENTFUL NIGHT.
--- NOTE | 2020-09-04 13:46 | NUR ---
GUARDIANSHIP- COURT VISITOR, DANTE DEXTER, VISITED WITH PATIENT AND THIS RN TODAY [phone]. I WILL PLACE HIS BUSINESS CARD ON THE WHITEBOARD.
--- NOTE | 2020-09-05 04:54 | NUR ---
RAQUEL WAS CALM AND COOPERATIVE OVERNIGHT. ONE TIME HE DID GET AGITATED WHEN THE ALARM WENT OFF IN HIS ROOM WHEN HE SAT UP ON THE SIDE OF THE BED. AFTER THIS, PATIENT WENT RIGHT BACK TO SLEEP. NO COMPLAINTS OF DISCOMFORT, CP, PRESSURE OR OTHER SIGNS OF AGITATION.
--- NOTE | 2020-09-05 19:16 | NUR ---
SHIFT SUMMARY NO ACUTE CHANGES, PT CALM AND COOPERATIVE MOST OF THE SHIFT BUT HAD OCCASIONAL AGRESSIVE AND AGITATED BEHAVIORS. THIS IS BASELINE FOR HIM. PT WAS ABLE TO BE CALMED AND REDIRECTED EASILY WITH CONVERSATION. TOWARDS END OF SHIFT PT WOULD CONTINUE TO GET UP WITHOUT CALLING, CHAIR ALARM AND BED ALARM, WELL CAMERA WERE ON T/O SHIFT. PT IS CURRENTLY SITTING IN THE CHAIR WITH CHAIR ALARM ON AND CALL LIGHT WITHIN REACH. PT HOPEFULLY TO BE DC ON MONDAY TO .
--- NOTE | 2020-09-06 07:21 | NUR ---
PATIENT MUCH MORE AGREEABLE LAST NIGHT. STILL GETS VERY IRRITABLE WHEN HE IS REDIRECTED FOR HIS OWN SAFETY. RAQUEL GETS MOST FRUSTRATED WHEN HE NEEDS TO URINATE. NO PHYSICALLY THREATENING MOVES DURING THE SHIFT. iNCONT OF URINE THREE TIMES OVERNIGHT, THEN HAD TO BE VERY GENTLY CODDLED TO ALLOW STAFF TO CLEAN HIM UP. NO COMPLAINTS OF DISCOMFORT OVERNIGHT.
--- NOTE | 2020-09-06 16:51 | NUR ---
SHIFT SUMMARY NO ACUTE CHANGES T/O SHIFT, CALM AND COOPERATIVE WITH CARE. NO AGRESSIVE BEHAVIOR THIS SHIFT OF NOW. PT UP IN CHAIR MOST OF THE DAY. RECEIVED A BED BATH AND LINEN CHANGE. GOOD APPETITE. POSSIBLE DC TOMORROW TO [facility]. APPEARED TO BE IN NO DISTRESS T/O SHIFT. CURRENTLY SITTING UP IN CHAIR, CHAIR ALARM ON AND CALL LIGHT WITHIN REACH.
--- NOTE | 2020-09-07 06:40 | NUR ---
No changes overnight. Patient did spend more time in bed last night. One Period of aggression early am when he got OOB as staff tried to gently lead the patient to toilet. No complaints of pain or discomfort overnight
[2020-09-07] MEDS ORDERED: LISI20 PO (10:25)
[2020-09-07] MEDS ORDERED: Amlodipine Bes2.5 MG PO (10:25)
--- NOTE | 2020-09-07 11:17 | NUR ---
DISCHARGED: to [facility], picked up by ambulance and transported to [facility], will call and give report flori
--- NOTE | 2020-09-07 12:10 | NUR ---
called and left report with tt, 3 different raúl to get an RN
== END 2020-09-07 11:21 | disposition home or self-care (01) ==
LOC: ER 13:10 → MEDS 13:11 → ER 13:11 → MEDS 23:35 → ER 06-27 16:58 → MEDS 06-27 16:58 → ENPENDDIS 09-07 10:36 → MEDS 09-07 11:21
PROVIDERS: Emergency Medicine; Internal Medicine; ADMIT Internal Medicine
DX: F01.51 Vascular dementia, unspecified severity, with behavioral disturbance (principal); I69.398 Other sequelae of cerebral infarction; I48.91 Unspecified atrial fibrillation; H54.8 Legal blindness, as defined in USA; E87.0 Hyperosmolality and hypernatremia; E86.0 Dehydration; I10 Essential (primary) hypertension; Z85.46 Personal history of malignant neoplasm of prostate; Z79.01 Long term (current) use of anticoagulants; Z66 Do not resuscitate
CPT/HCPCS: 36415; 80048; 80053; 80069; 81003; 82607; 82728; 82746; 83540; 83550; 84443; 85025; 99285; A9270; A9270-GY; G0378; G0480; Q3014

== ENCOUNTER → 2020-09-24 | Outpatient (CLI) | payer MEDICARE, OTHER ==
[~2020-09-24] MED LIST changes: +DIVA250EC PO; +LISI20 PO; +LORA.5 PO; +SENNA LAXATIVE8.6 MG PO; +SEROQUEL25 MG PO; +SEROQUEL50 MG PO
[2020-09-24 12:43] LABS: Alanine Aminotransfer (ALT/SGP 49 U/L (12-78); Albumin, Blood 3.1 g/dL (3.4-5.0); Alk Phos 82 U/L (50-136); Anion Gap 4 mmol/L (6-16); Aspartate Aminotrans (AST/SGOT 28 U/L (12-37); Bilirubin, Total 0.3 mg/dL (0.1-1.0); Blood Urea Nitrogen 23 mg/dL (8-24); Bun/Creatinine Ratio 27.3 (12.0-20.0); CHOL/HDL RATIO 2.8; CO2, Blood 27 mmol/L (21-32); Calcium, Blood 8.4 mg/dL (8.5-10.1); Chloride, Blood 110 mmol/L (98-108); Cholesterol 115 mg/dL (50-200); Creatinine, Blood 0.84 mg/dL (0.60-1.20); Globulin, Blood 3.1 g/dL (2.2-4.0); Glomerular Filtration Rate >60 (60-); Glucose, Blood 77 mg/dL (70-99); HDL Cholesterol 41 mg/dL (>39); Low Density Lipoprotein Chol 42 mg/dL (0-110); Sodium, Blood 141 mmol/L (136-145); Total Protein, Blood 6.2 g/dL (6.4-8.2); Triglycerides 161 mg/dL (30-160); Very Low Density Lipoprot Chol 32 mg/dL (6-32)
== END | disposition home or self-care (01) ==
LOC: LAB SHORT 10:00 → LAB 10:00 → LAB FUT 09-21 16:00 → EDSTATUS 09-21 16:00
PROVIDERS: Physician Assistant
DX: Z13.1 Encounter for screening for diabetes mellitus (principal); Z13.220 Encounter for screening for lipoid disorders; I10 Essential (primary) hypertension; E11.9 Type 2 diabetes mellitus without complications; D64.9 Anemia, unspecified; I48.91 Unspecified atrial fibrillation
CPT/HCPCS: 80053; 80061; 83036

== ENCOUNTER → 2020-09-29 | Outpatient (CLI) | payer MEDICARE, OTHER ==
[2020-09-30 13:10] LABS: Source, Urine Clean Catch
[2020-09-30 16:29] LABS: Appearance, Urine Clear (Clear); Bilirubin, Urine Neg (Neg); Blood, Urine Neg (Neg); Color, Urine Yellow (P-Yellow); Glucose Qualitative, Urine Neg (Neg); Ketones, Urine Neg (Neg); Leukocyte Esterase, Urine Neg (Neg); Nitrite, Urine Neg (Neg); Protein, Urine Neg (Neg); Urobilinogen, Urine NORM (Normal); pH, Urine 6.5 (5.0-8.0)
== END | disposition home or self-care (01) ==
LOC: LAB SHORT 15:00 → LAB 15:00
PROVIDERS: Physician Assistant
DX: N39.0 Urinary tract infection, site not specified (principal)
CPT/HCPCS: 81003

== ENCOUNTER → 2020-10-28 | Outpatient (CLI) | payer MEDICARE, OTHER ==
[2020-10-29 11:57] LABS: Source, Urine Clean Catch
[2020-10-29 13:37] LABS: Bilirubin, Urine Neg (Neg); Blood, Urine Neg (Neg); Glucose Qualitative, Urine Neg (Neg); Ketones, Urine 1+ (Neg); Leukocyte Esterase, Urine Neg (Neg); Nitrite, Urine Neg (Neg); Protein, Urine Neg (Neg); Urobilinogen, Urine 1+ (Normal)
[2020-10-29 13:46] LABS: Appearance, Urine Clear (Clear); Color, Urine Yellow (P-Yellow)
[2020-10-29 13:48] LABS: Bacteria Rare /hpf; Red Blood Cells, Urine Rare /hpf (0-2); Squamous Epithelial Cells Not Seen /hpf (Few); White Blood Cells, Urine Rare /hpf (0-5)
== END ==
LOC: LAB 11:54 → LAB SHORT 11:54
PROVIDERS: Physician Assistant
DX: N39.0 Urinary tract infection, site not specified (principal)
CPT/HCPCS: 81001; 81003

== ENCOUNTER → 2020-11-24 | Outpatient (CLI) | payer MEDICARE, OTHER ==
[2020-11-24 19:52] LABS: Valproic Acid 42.7 ug/mL (50.0-100.0)
== END | disposition home or self-care (01) ==
LOC: LAB 07:50 → LAB SHORT 07:50
PROVIDERS: Psychiatry & Neurology Psychiatry
DX: Z51.81 Encounter for therapeutic drug level monitoring (principal); Z79.899 Other long term (current) drug therapy
CPT/HCPCS: 80164

== ENCOUNTER → 2020-12-31 | Outpatient (CLI) | payer MEDICARE, OTHER ==
[2020-12-31 15:39] LABS: Alanine Aminotransfer (ALT/SGP 31 U/L (12-78); Albumin, Blood 3.4 g/dL (3.4-5.0); Albumin/Globulin Ratio 0.9 (0.8-1.8); Alk Phos 91 U/L (50-136); Anion Gap 6 mmol/L (6-16); Aspartate Aminotrans (AST/SGOT 18 U/L (12-37); Bilirubin, Total 0.4 mg/dL (0.1-1.0); Blood Urea Nitrogen 23 mg/dL (8-24); Bun/Creatinine Ratio 22.5 (12.0-20.0); CO2, Blood 27 mmol/L (21-32); Calcium, Blood 8.7 mg/dL (8.5-10.1); Chloride, Blood 108 mmol/L (98-108); Creatinine, Blood 1.02 mg/dL (0.60-1.20); Globulin, Blood 3.8 g/dL (2.2-4.0); Glomerular Filtration Rate >60 (60-); Glucose, Blood 80 mg/dL (70-99); Sodium, Blood 141 mmol/L (136-145); Total Protein, Blood 7.2 g/dL (6.4-8.2)
== END | disposition home or self-care (01) ==
LOC: LAB 07:35 → LAB SHORT 07:35
PROVIDERS: Physician Assistant
DX: I10 Essential (primary) hypertension (principal)
CPT/HCPCS: 36415; 80053

== ENCOUNTER → 2021-03-08 | Outpatient (CLI) | payer MEDICARE, OTHER | END | disposition home or self-care (01) | LOC: LAB SHORT 07:55 → LAB 07:55 | PROVIDERS: Psychiatry & Neurology Psychiatry | DX: Z51.81 Encounter for therapeutic drug level monitoring (principal); Z79.899 Other long term (current) drug therapy | CPT/HCPCS: 80164 ==

== ENCOUNTER → 2021-05-19 | Outpatient (CLI) | payer MEDICARE, OTHER ==
[2021-05-19 13:30] LABS: Valproic Acid 57.8 ug/mL (50.0-100.0)
== END | disposition home or self-care (01) ==
LOC: LAB 11:00 → LAB SHORT 11:00
PROVIDERS: Psychiatry & Neurology Psychiatry
DX: Z51.81 Encounter for therapeutic drug level monitoring (principal); Z79.899 Other long term (current) drug therapy
CPT/HCPCS: 80164

== ENCOUNTER → 2021-09-22 | Outpatient (CLI) | payer MEDICARE, OTHER ==
[2021-09-22 15:05] LABS: Valproic Acid 46.5 ug/mL (50.0-100.0)
== END | disposition home or self-care (01) ==
LOC: LAB SHORT 08:15 → LAB 08:15
PROVIDERS: Psychiatry & Neurology Psychiatry
DX: Z51.81 Encounter for therapeutic drug level monitoring (principal); Z79.899 Other long term (current) drug therapy
CPT/HCPCS: 80164

== ENCOUNTER → 2021-09-23 | Outpatient (CLI) | payer MEDICARE, OTHER ==
[2021-09-23 13:55] LABS: Alanine Aminotransfer (ALT/SGP 41 U/L (12-78); Albumin, Blood 3.5 g/dL (3.4-5.0); Albumin/Globulin Ratio 0.9 (0.8-1.8); Alk Phos 83 U/L (50-136); Anion Gap 4 mmol/L (6-16); Aspartate Aminotrans (AST/SGOT 22 U/L (12-37); Bilirubin, Total 0.3 mg/dL (0.1-1.0); Blood Urea Nitrogen 25 mg/dL (8-24); Bun/Creatinine Ratio 26.3 (12.0-20.0); CO2, Blood 29 mmol/L (21-32); Calcium, Blood 8.8 mg/dL (8.5-10.1); Chloride, Blood 107 mmol/L (98-108); Cholesterol 184 mg/dL (50-200); Creatinine, Blood 0.95 mg/dL (0.60-1.20); Globulin, Blood 3.8 g/dL (2.2-4.0); Glomerular Filtration Rate >60 (60-); Glucose, Blood 90 mg/dL (70-99); HDL Cholesterol 37 mg/dL (>39); LDL/HDL RATIO 2.3; Low Density Lipoprotein Chol 87 mg/dL (0-110); Potassium, Blood 3.9 mmol/L (3.5-5.5); Sodium, Blood 140 mmol/L (136-145); Total Protein, Blood 7.3 g/dL (6.4-8.2); Triglycerides 302 mg/dL (30-160); Very Low Density Lipoprot Chol 60 mg/dL (6-32)
== END ==
LOC: LAB 08:25 → LAB SHORT 08:25
PROVIDERS: Physician Assistant
DX: E78.2 Mixed hyperlipidemia (principal); I10 Essential (primary) hypertension; Z11.59 Encounter for screening for other viral diseases; Z86.73 Personal history of transient ischemic attack (TIA), and cerebral infarction without residual deficits
CPT/HCPCS: 80053; 80061

== ENCOUNTER → 2021-10-06 | Outpatient (CLI) | payer MEDICARE, OTHER ==
[2021-10-07 13:49] LABS: Stool Occult Bld Immuno 1 Negative (NEGATIVE)
== END | disposition home or self-care (01) ==
LOC: LAB SHORT 18:00
PROVIDERS: Physician Assistant
DX: Z12.11 Encounter for screening for malignant neoplasm of colon (principal)
CPT/HCPCS: G0328

== ENCOUNTER → 2022-05-25 | Outpatient (CLI) | payer MEDICARE, OTHER ==
[2022-05-25 12:31] LABS: BASOPHILS ABSOLUTE AUTO 0.07 K/mm3 (0.00-0.23); BASOPHILS PERCENT AUTO 1 % (0-2); EOSINOPHILS ABSOLUTE AUTO 0.45 K/mm3 (0.00-0.68); EOSINOPHILS PERCENT AUTO 7 % (0-6); Hematocrit 38.6 % (37.0-53.0); Hemoglobin 13.3 g/dL (13.5-17.5); IMMATURE GRAN ABSOLUTE AUTO 0.02 K/mm3 (0.00-0.10); IMMATURE GRAN PERCENT AUTO 0 % (0-1); LYMPHOCYTES ABSOLUTE AUTO 2.37 K/mm3 (0.84-5.20); LYMPHOCYTES PERCENT AUTO 36 % (21-46); MONOCYTES ABSOLUTE AUTO 0.86 K/mm3 (0.16-1.47); MONOCYTES PERCENT AUTO 13 % (4-13); Mean Corpuscular HGB 31.1 pg (26.0-34.0); Mean Corpuscular HGB Conc 34.5 g/dL (31.5-36.5); Mean Corpuscular Volume 90 fL (80-100); Mean Platelet Volume 10.5 fL (9.1-12.4); NEUTROPHILS ABSOLUTE AUTO 2.79 K/mm3 (1.96-9.15); NEUTROPHILS PERCENT AUTO 43 % (41-73); Platelet Count 217 K/mm3 (150-400); RDW Coefficient Variation 12.7 % (11.7-14.2); RDW Standard Deviation 42.5 fL (35.1-46.3); Red Blood Cell Count 4.28 M/mm3 (4.30-5.90); White Blood Cell Count 6.56 K/mm3 (4.00-11.30)
[2022-05-25 12:57] LABS: Alanine Aminotransfer (ALT/SGP 66 U/L (12-78); Albumin/Globulin Ratio 0.9 (0.8-1.8); Alk Phos 60 U/L (50-136); Anion Gap 8 mmol/L (6-16); Aspartate Aminotrans (AST/SGOT 31 U/L (12-37); Bilirubin, Total 0.5 mg/dL (0.1-1.0); Blood Urea Nitrogen 19 mg/dL (8-24); Bun/Creatinine Ratio 20.5 (12.0-20.0); CHOL/HDL RATIO 7.1; CO2, Blood 27 mmol/L (21-32); Calcium, Blood 8.7 mg/dL (8.5-10.1); Chloride, Blood 105 mmol/L (98-108); Cholesterol 248 mg/dL (50-200); Creatinine, Blood 0.93 mg/dL (0.60-1.20); Globulin, Blood 3.4 g/dL (2.2-4.0); Glomerular Filtration Rate 89 (60-); Glucose, Blood 91 mg/dL (70-99); HDL Cholesterol 35 mg/dL (>39); LDL/HDL RATIO 3.9; Low Density Lipoprotein Chol 137 mg/dL (0-110); Potassium, Blood 3.8 mmol/L (3.5-5.5); Sodium, Blood 140 mmol/L (136-145); Total Protein, Blood 6.4 g/dL (6.4-8.2); Triglycerides 381 mg/dL (30-160); Valproic Acid 45.5 ug/mL (50.0-100.0); Very Low Density Lipoprot Chol 76 mg/dL (6-32)
== END | disposition home or self-care (01) ==
LOC: LAB SHORT 09:39 → LAB 09:39
PROVIDERS: Physician Assistant
DX: Z51.81 Encounter for therapeutic drug level monitoring (principal); Z79.899 Other long term (current) drug therapy
CPT/HCPCS: 80053; 80061; 80164; 83036; 85025

== ENCOUNTER → 2022-10-06 | Outpatient (CLI) | payer MEDICARE, OTHER ==
[2022-10-06 12:59] LABS: Valproic Acid 47.5 ug/mL (50.0-100.0)
== END | disposition home or self-care (01) ==
LOC: LAB 08:24 → LAB SHORT 08:24
PROVIDERS: Psychiatry & Neurology Psychiatry
DX: Z51.81 Encounter for therapeutic drug level monitoring (principal)
CPT/HCPCS: 80164

== ENCOUNTER → 2022-12-07 | Outpatient (CLI) | payer MEDICARE, OTHER ==
[2022-12-07 15:21] LABS: Bun/Creatinine Ratio 23.8 (12.0-20.0); Calcium, Blood 8.8 mg/dL (8.5-10.1); Creatinine, Blood 1.3 mg/dL (0.60-1.20); Potassium, Blood 3.4 mmol/L (3.5-5.5)
== END | disposition home or self-care (01) ==
LOC: LAB SHORT 09:50 → LAB 09:50
PROVIDERS: Physician Assistant
DX: I10 Essential (primary) hypertension (principal)
CPT/HCPCS: 80048

== ENCOUNTER → 2023-01-03 | Outpatient (CLI) | payer MEDICARE, OTHER ==
[2023-01-03 15:08] LABS: Alanine Aminotransfer (ALT/SGP 42 U/L (12-78); Albumin/Globulin Ratio 0.8 (0.8-1.8); Alk Phos 73 U/L (50-136); Anion Gap 8 mmol/L (6-16); Aspartate Aminotrans (AST/SGOT 27 U/L (12-37); Bilirubin, Total 0.4 mg/dL (0.1-1.0); Blood Urea Nitrogen 30 mg/dL (8-24); Bun/Creatinine Ratio 26.1 (12.0-20.0); CHOL/HDL RATIO 3.5; CO2, Blood 27 mmol/L (21-32); Calcium, Blood 8.8 mg/dL (8.5-10.1); Chloride, Blood 110 mmol/L (98-108); Cholesterol 132 mg/dL (50-200); Creatinine, Blood 1.15 mg/dL (0.60-1.20); Globulin, Blood 3.7 g/dL (2.2-4.0); Glomerular Filtration Rate 69 (60-); Glucose, Blood 92 mg/dL (70-99); HDL Cholesterol 38 mg/dL (>39); LDL/HDL RATIO 1.3; Low Density Lipoprotein Chol 48 mg/dL (0-110); Potassium, Blood 3.8 mmol/L (3.5-5.5); Sodium, Blood 145 mmol/L (136-145); Total Protein, Blood 6.7 g/dL (6.4-8.2); Triglycerides 228 mg/dL (30-160); Valproic Acid 55.7 ug/mL (50.0-100.0); Very Low Density Lipoprot Chol 45 mg/dL (6-32)
== END | disposition home or self-care (01) ==
LOC: LAB SHORT 07:55 → LAB 07:55
PROVIDERS: Physician Assistant
DX: E78.2 Mixed hyperlipidemia (principal); Z79.899 Other long term (current) drug therapy
CPT/HCPCS: 80053; 80061; 80164; 83036

== ENCOUNTER → 2023-03-27 | Outpatient (CLI) | payer MEDICARE, OTHER ==
[2023-03-27 14:42] LABS: Valproic Acid 57.4 ug/mL (50.0-100.0)
== END | disposition home or self-care (01) ==
LOC: LAB 13:01 → LAB SHORT 13:01
PROVIDERS: Psychiatry & Neurology Psychiatry
DX: Z51.81 Encounter for therapeutic drug level monitoring (principal); Z79.899 Other long term (current) drug therapy
CPT/HCPCS: 80164